=== PATIENT | male | born 1930 | race African-American/Black ===

== ENCOUNTER 2017-01-09 10:21 | Observation (INO) ==
--- NOTE | 2017-01-09 11:03 | EKG Report ---
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
[2017-01-09 12:13] LABS: Basophils % 0.3 % (0.0-0.8); Hematocrit 33.9 VOL% (42.0-52.0); Hemoglobin 11.4 GM/DL (14.0-18.0); Immature Granulocytes % 0.5 %; Immature Granulocytes Absolute 0.03 #; Lymphocytes # 0.7 10*3/uL (1.4-4.0); Lymphocytes % 11.2 % (21.2-54.2); Mean Corpuscular HGB Conc 33.6 GM/DL (32-36); Mean Corpuscular Hemoglobin 27 PG (27-34); Mean Corpuscular Volume 81.3 FL (87-102); Mean Platelet Volume 10.3 FL (9.6-12.0); Monocytes # 0.4 10*3/uL (0.11-0.8); Monocytes % 5.4 % (1.7-12.7); Neutrophils # 5.3 10*3/uL (1.4-7.4); Neutrophils % 82.6 % (38.7-73.9); Platelet Count 235 T/CUMM (130-400); Red Blood Count 4.17 MC/CUMM (3.8-5.5); Red Cell Distribution Width 16.4 % (9.3-17.3); White Blood Count 6.4 T/CUMM (4-12)
--- NOTE | 2017-01-09 12:36 | XRay Report ---
XR chest 1V Indication: Chest pain Comparison: 15 December 2016 Findings: The heart and mediastinum are stable in size and configuration with cardiac surgery changes. The pulmonary vascularity is increased especially centrally but similar to previous exams. Lung volumes are increased with prominent bronchial markings. Right midlung density similar to previous exam. No other lung infiltrates, effusions, pneumothorax or other abnormality is demonstrated. Impression: Chronic lung changes. No acute process or significant change. PROCEDURE INTERPRETED AT [facility] DEPARTMENT OF RADIOLOGY Final Report Signed by: Dr. Jack Barr
[2017-01-09 12:38] LABS: Albumin 3.8 G/DL (3.4-5.0); Bilirubin,Total 0.4 MG/DL (0.2-1.0); Calcium 9.8 MG/DL (8.5-10.1); Osmolality,Calculated 280.5 MOS/KG (273-304); Potassium 4.9 MMOL/L (3.5-5.1); Total Protein 8.2 G/DL (6.4-8.3)
--- NOTE | 2017-01-09 13:12 | Emergency Department Note ---
Maria Elena Connolly Brittany, am scribing for, and in the presence of, Sumanth Benson MD 11:01. Kelley Connolly Phillip K, MD, personally performed the services described in this documentation, ascribed by Yumi Arredondo in my presence, and it is both accurate and complete 311 . Arrival - Arrival Chief Complaint: Chest Pain Stated Complaint: chest pain ED Nursing Triage Note: states has pain in rt side of chest the feels like something rubbing on the bone. onset 3 days ago. Mode of Arrival: Wheelchair Limitations: No Limitations Source: Patient - History of Present Illness HPI Narrative: This is an 86 y/o male,who presents to the ED with c/o CP which started 3 days ago. He localizes the chest pain to the right side of the chest and describes the pain as "something rubbing on his sternum". He has a known hx of lung and colon cancer. Pt denies a cough or fever. He states the pain is worse with ovements, but deeply breathing does not affect the chest pain. He notes the chest pain radiates into his left side. Pt has no other complaints/pain in the ED at this time. Pt has a PMHx of HTN, [place], colon and lung cancer. Pt has had an abdominal surgery and heart bypass. Pt denies a family medical Hx. Pt is a former smoker, he states he quit four (4) months ago. Onset (ago): day(s) (Started 3 days ago.) Consistency: constant Severity: moderate Quality: other ("Something rubbing on bone". ) Allergies/Adverse Reactions: Allergies Allergy/AdvReac Type Severity Reaction Status Date / Time No Known Allergies Allergy Verified 12/15/16 06:52 Home Medications: Home Medications Medication Instructions Recorded Confirmed Type Cyanocobalamin Inj [Vitamin B12 1,000 mcg IM Q30D 08/31/15 12/06/16 History Inj] Ezetimibe [Zetia] 10 mg PO DAILY 08/31/15 12/15/16 History Metformin HCl [Glucophage] 1,000 mg PO BID W/MEALS 08/31/15 12/15/16 History Simvastatin 20 mg PO BEDTIME 08/31/15 12/15/16 History Aspirin [Ecotrin] 81 mg PO DAILY 04/21/16 12/15/16 History Lisinopril [Prinivil] 2.5 mg PO DAILY #30 tablet 04/25/16 12/15/16 Rx Metoprolol Tartrate Tab [Lopressor 50 mg PO BID #60 tablet 04/25/16 12/15/16 Rx Tab] Nitroglycerin Sl Tab [Nitrostat] 0.4 mg SL Q5M PRN #1 bottle 04/25/16 12/06/16 Rx Pantoprazole Tab [Protonix Tab] 40 mg PO DAILY #30 tablet 04/25/16 12/15/16 Rx hydroCHLOROthiazide 12.5 mg PO DAILY #30 capsule 08/11/16 12/15/16 Rx [Hydrochlorothiazide] Review of System - Review of System 12 point system: reviewed and no additional remarkable complaints except as stated - Review of System Constitutional: Absent: fever Respiratory: Absent: cough Cardiovascular: Present: chest pain Medical,Surgical,& Family Hx - Medical History Cardio: History of: Hypertension (MEDICATION), [place] Neurology: History of: Migraine No history of: Brain Aneurysm, Cerebrovascular Accident, Seizures, Vertigo HEENT: History of: HEENT Problems Respiratory: History of: Pneumonia Comment Only: Respiratory Problems (HAD FLU VACCINE AND PNUEMONIA VACCINE) Gastrointestinal: History of: Gastrointestinal Cancer (colon cancer) - Surgical History Cardiac Surgeries: Sugical HX of: Cardiac Catheterization (HEART BYPASS) Neurologic Surgeries: Patient denies: Brain Aneurysm Abdominal Surgeries: Surgical HX of: Abdominal Surgery (: Resection secondary to carcinoma) - Social History Smoking Status: Former smoker Frequency of Alcohol Use: None Type of Drug Use: None Exam Vital Signs: Vital Signs Temperature 98.1 F 01/09/17 10:24 Pulse Rate 70 01/09/17 11:15 Respiratory Rate 18 01/09/17 11:15 Blood Pressure 179/104 01/09/17 11:15 O2 Sat by Pulse Oximetry 90 L 01/09/17 11:15 - General General appearance: alert, in no apparent distress - Head Head exam: Present: atraumatic, normocephalic, normal inspection - Eye Eye exam: Present: normal appearance, PERRL, EOMI. Absent: nystagmus - ENT ENT exam: Present: normal exam, mucous membranes moist - Neck Neck exam: Present: normal inspection, full ROM, trachea midline. Absent: tenderness - Chest Chest inspection: Present: normal inspection, symmetric chest wall rise. Absent : tenderness - Respiratory Respiratory exam: Present: rales (Bibasilar rales). Absent: normal lung sounds bilaterally, respiratory distress - Cardiovascular Cardiovascular exam: Present: regular rate, normal rhythm, normal heart sounds. Absent: murmur, rubs, gallop, clicks - Abdominal Exam Abdominal exam: Present: soft, normal bowel sounds. Absent: distention, tenderness, guarding, rebound, rigidity - Rectal Exam Rectal exam: Present: deferred - Extremities Exam Extremities exam: Present: normal inspection, full ROM, normal capillary refill. Absent: tenderness, pedal edema - Back Exam Back exam: Present: normal inspection, full ROM. Absent: tenderness, muscle spasm, rashes - Neurological Exam Neurological exam: Present: alert, oriented X3, CN II-XII intact. Absent: motor sensory deficit - Psychiatric Psychiatric exam: Present: normal affect, normal mood. Absent: depressed, agitated, anxious, flat affect, manic - Skin Skin exam: Present: warm, dry, intact, normal color. 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 Results - Labs CBC & BMP: 01/09/17 12:06 01/09/17 12:06 Lab Results: I have reviewed the patients labs Labs: Laboratory Tests 01/09/17 01/09/17 12:06 12:06 WBC 6.4 RBC 4.17 Hgb 11.4 L Hct 33.9 L MCV 81.3 L MCH 27 MCHC 33.6 RDW 16.4 Plt Count 235 MPV 10.3 Neut % (Auto) 82.6 H Lymph % (Auto) 11.2 L [place]elope % (Auto) 5.4 Eos % (Auto) 0.0 Baso % (Auto) 0.3 Neut # (Auto) 5.3 Lymph # (Auto) 0.7 L [place] # (Auto) 0.4 Eos # (Auto) 0.0 Baso # (Auto) 0.0 Immature Gran % 0.5 Nucleated RBC % 0.0 Immature Gran # 0.03 Nucleated RBCs # 0.00 Immature Plt Fraction 0.0 Sodium 139 Potassium 4.9 Chloride 104 Carbon Dioxide 31 Anion Gap 8.9 BUN 22 H Creatinine 1.40 H GFR Calculation 56 BUN/Creatinine Ratio 15.00 Glucose 125 H Calculated Osmolality 280.5 Calcium 9.8 Total Bilirubin 0.40 AST 20 ALT 16 Alkaline Phosphatase 69 Total Protein 8.2 Albumin 3.8 Globulin 4.4 H Albumin/Globulin Ratio 0.8 L Laboratory Tests 01/09/17 01/09/17 01/09/17 12:06 12:06 12:06 WBC 6.4 RBC 4.17 Hgb 11.4 L Hct 33.9 L MCV 81.3 L MCH 27 MCHC 33.6 RDW 16.4 Plt Count 235 MPV 10.3 Neut % (Auto) 82.6 H Lymph % (Auto) 11.2 L [place]elope % (Auto) 5.4 Eos % (Auto) 0.0 Baso % (Auto) 0.3 Neut # (Auto) 5.3 Lymph # (Auto) 0.7 L [place] # (Auto) 0.4 Eos # (Auto) 0.0 Baso # (Auto) 0.0 Immature Gran % 0.5 Nucleated RBC % 0.0 Immature Gran # 0.03 Nucleated RBCs # 0.00 Immature Plt Fraction 0.0 Sodium 139 Potassium 4.9 Chloride 104 Carbon Dioxide 31 Anion Gap 8.9 BUN 22 H Creatinine 1.40 H GFR Calculation 56 BUN/Creatinine Ratio 15.00 Glucose 125 H Calculated Osmolality 280.5 Calcium 9.8 Total Bilirubin 0.40 AST 20 ALT 16 Alkaline Phosphatase 69 Troponin I 0.115 H Total Protein 8.2 Albumin 3.8 Globulin 4.4 H Albumin/Globulin Ratio 0.8 L - EKG EKG results: interpreted by ERMD, sinus rhythm (Nonspecific ST-T changes with left ventricular hypertrophy) - Diagnostic Findings Procedure: Chest x-ray: report reviewed by me (Chronic lung changes. No acute process or significant changes. ) Disposition Clinical Impression: Chest pain, Small cell carcinoma of right lung Case discussed with: patient Disposition: Still a Patient Condition: Guarded Additional Instructions: Admit to the hospitalist.
[2017-01-09] MEDS ORDERED: ACETAMINOPHEN 325 MG TABLET PO PRN (14:22)
[2017-01-09] MEDS ORDERED: DOCUSATE SODIUM 100 MG CAPSULE PO PRN (14:22)
[2017-01-09] MEDS ORDERED: ONDANSETRON 4 MG/2 ML VIAL IV PRN (14:22)
[2017-01-09] MEDS ORDERED: NITROGLYCERIN SL 0.4 MG TABLET SL PRN (14:23)
--- NOTE | 2017-01-09 15:04 | Hospitalist History & Physical ---
Assessment and Plan - Time spent with patient Time spent with patient: Greater than 30 minutes (1) Chest pain Status: Acute Assessment and plan: 86-year-old -[place] male presents with chest pain localized to the right chest. Troponin is mildly elevated however this seems to be baseline for this patient. Patient will be admitted to the hospital medicine service for further evaluation. Trend EKGs and troponins. Check thyroid function. Current Visit: No (2) Diabetes mellitus Status: Chronic Assessment and plan: Serum glucose noted to be 125. Continue metformin. Current Visit: No (3) Small cell carcinoma of right lung Status: Acute Assessment and plan: Bronchial biopsy with washings performed in [place] [address] Espinoza. Pathology reports small cell carcinoma of the right lung. CT of the chest from November 10, 2016 shows a right hilar mass in the middle lobe measuring 4.3 x 2.63 x 2.4 cm and abuts the pleural surface. After consultation with oncology, chemotherapy was not deemed a viable option. This is likely the source of the patient's chest pain at this presentation. Current Visit: Yes (4) Elevated troponin Status: Acute Current Visit: No (5) Hypertension Status: Chronic Current Visit: No Qualifiers: Hypertension type: essential hypertension Qualified Code(s): I10 - Essential (primary) hypertension History of Present Illness Chief complaint: chest pain History of present illness: Mr. Taveras is a 86 year old male with a past medical history significant for hypertension, coronary artery disease, NSTEMI, CABG, diabetes mellitus, COPD and small cell carcinoma of the RML who presents with right- sided chest pain having onset 3 days ago. The patient is accompanied by his sister who provides much of the history. Patient states that the pain does radiate into his left chest, is uncomfortable with movement, but does worsen with inspiration. He has a history of colon cancer and was recently diagnosed with small cell carcinoma in November 2016. He states that he has seen an oncologist and, given the patient's nutritional status and frailty, has decided not to pursue any therapy at this time. Patient is a former smoker but reports quitting four months ago. He denies alcohol use. Lab work reveals WBC 6.4, hemoglobin 11.4, hematocrit 33.9, BUN 22, creatinine 1.4, serum glucose 125. The patient does have a mildly elevated troponin at 0.115, however, this appears to be baseline for this patient per hospital records. Chest x-ray does not show any significant change from previous imaging. This case is been discussed with Dr. Benson, ER physician and Dr. Munoz, admitting physician, the patient will be admitted for observation. CODE STATUS has been discussed; patient is a full code. Home medications have been reviewed and reconciled. Home Medications Medication Instructions Recorded Confirmed Type Cyanocobalamin Inj [Vitamin B12 1,000 mcg IM Q30D 08/31/15 12/06/16 History Inj] Ezetimibe [Zetia] 10 mg PO DAILY 08/31/15 12/15/16 History Metformin HCl [Glucophage] 1,000 mg PO BID W/MEALS 08/31/15 12/15/16 History Simvastatin 20 mg PO BEDTIME 08/31/15 12/15/16 History Aspirin [Ecotrin] 81 mg PO DAILY 04/21/16 12/15/16 History Lisinopril [Prinivil] 2.5 mg PO DAILY #30 tablet 04/25/16 12/15/16 Rx Metoprolol Tartrate Tab [Lopressor 50 mg PO BID #60 tablet 04/25/16 12/15/16 Rx Tab] Nitroglycerin Sl Tab [Nitrostat] 0.4 mg SL Q5M PRN #1 bottle 04/25/16 12/06/16 Rx Pantoprazole Tab [Protonix Tab] 40 mg PO DAILY #30 tablet 04/25/16 12/15/16 Rx hydroCHLOROthiazide 12.5 mg PO DAILY #30 capsule 08/11/16 12/15/16 Rx [Hydrochlorothiazide] Allergies Allergy/AdvReac Type Severity Reaction Status Date / Time No Known Allergies Allergy Verified 12/15/16 06:52 Medical,Surgical,& Family Hx - Medical History Cardio: History of: Hypertension (MEDICATION), [place] Neurology: History of: Migraine No history of: Brain Aneurysm, Cerebrovascular Accident, Seizures, Vertigo HEENT: History of: HEENT Problems Respiratory: History of: Pneumonia Comment Only: Respiratory Problems (HAD FLU VACCINE AND PNUEMONIA VACCINE) Gastrointestinal: History of: Gastrointestinal Cancer (colon cancer) - Surgical History Cardiac Surgeries: Sugical HX of: Cardiac Catheterization (HEART BYPASS) Neurologic Surgeries: Patient denies: Brain Aneurysm Abdominal Surgeries: Surgical HX of: Abdominal Surgery (: Resection secondary to carcinoma) - Family History Family History: Reports;: Family Diabetes, Family Hypertension - Social History Smoking Status: Former smoker (Quit 4 months ago per patient) Have you smoked in the last 12 months: Yes Frequency of Alcohol Use: None Type of Drug Use: None Marital Status: Single Lives With:: Alone Functional capacity: independent ambulation 12 point system: reviewed and no additional remarkable complaints except as stated Exam - Constitutional Vitals: Period Temp Pulse Resp BP Sys/Nolen Pulse Ox Last 24 Hr 98.1 F 60-81 16-18 122-188/52-104 90-100 Exam: General appearance: normal weight, no acute distress - Head Head exam: Present: normocephalic, atraumatic - Eye Eye exam: Present: EOMI. Absent: conjunctival injection, nystagmus Pupils: Present: MARIO ALBERTO, normal accommodation - ENT ENT exam: Present: normal exam, normal external ear exam - Neck Neck exam: Present: normal inspection. Absent: lymphadenopathy, tenderness, thyromegaly - Respiratory Respiratory exam: Present: Decreased breath sounds. Absent: rales, rhonchi, wheezes - Cardiovascular Cardiovascular exam: Present: regular rate and rhythm. Absent: carotid bruit, gallop, rubs - GI/Abdominal GI/Abdominal exam: Present: normal bowel sounds. Absent: ascites, distended, mass - Extremities Exam Extremities exam: Present: normal inspection, normal capillary refill. Absent: edema - Back Exam Back exam: Absent: CVA tenderness (L), CVA tenderness (R) - Neurological Exam Neurological exam: Present: alert, oriented X3, CN II-XII intact, reflexes normal - Psychiatric Psychiatric exam: Present: normal affect, normal mood - Skin Skin exam: Present: normal color, warm, dry Results - Labs CBC & BMP: 01/09/17 12:06 01/09/17 12:06 Lab Results: I have reviewed the past 24 hour labs - Diagnostic Findings Procedure: Chest x-ray: image reviewed by me, report reviewed by me (No significant change from previous images)
[2017-01-09 17:29] LABS: Troponin I Only 0.121 NG/ML (0.00-0.045)
[2017-01-09] MEDS: SODIUM CHLORIDE 0.9% 1,000 ML IV SCH (19:03)
[2017-01-09] MEDS: metFORMIN 500 MG TABLET PO SCH (19:04)
[2017-01-09 20:49] LABS: Troponin I Only 0.128 NG/ML (0.00-0.045)
[2017-01-09] MEDS ORDERED: SIMVASTATIN 20 MG TABLET PO SCH (21:00)
[2017-01-10 03:09] LABS: Troponin I Only 0.135 NG/ML (0.00-0.045)
[2017-01-10] MEDS: SODIUM CHLORIDE 0.9% 1,000 ML IV SCH ×2 (03:10→12:10)
[2017-01-10 03:17] LABS: Free T4 (Free Thyroxine) 1.62 NG/DL (0.76-1.46); Thyroid Stimulating Hormone 1.63 uIU/ml (0.358-3.74)
--- NOTE | 2017-01-10 06:39 | EKG Report ---
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
[2017-01-10] MEDS ORDERED: DEXTROSE 50% 25 GM/50 ML SYRINGE IV PRN (07:47)
[2017-01-10] MEDS ORDERED: GLUCAGON 1 MG VIAL IM PRN (07:47)
[2017-01-10] MEDS ORDERED: ASPIRIN EC 81 MG TABLET PO SCH (09:00)
[2017-01-10] MEDS ORDERED: EZETIMIBE 10 MG TABLET PO SCH (09:00)
[2017-01-10] MEDS ORDERED: PANTOPRAZOLE 40 MG TABLET PO SCH (09:00)
[2017-01-10] MEDS: metFORMIN 500 MG TABLET PO SCH (10:00)
[2017-01-10] MEDS ORDERED: hydrALAZINE 20 MG/1 ML VIAL IV ONE (10:03)
--- NOTE | 2017-01-10 10:06 | Discharge Summary ---
<Yandel Mckay - Last Filed: 01/10/17 12:08> Hospital Course - Hospital Course Hospital Course: Mr. Taveras is a 86 year old male with a past medical history significant for hypertension, coronary artery disease, NSTEMI, CABG, diabetes mellitus, COPD and small cell carcinoma of the RML who presented to the ED yesterday with right-sided chest pain having onset 3 days prior. The patient is accompanied by his sister who provides much of the history. Patient states that the pain does radiate into his left chest, is uncomfortable with movement, but does not worsen with inspiration. He has a history of colon cancer and was recently diagnosed with small cell carcinoma of the right lung in November 2016. He states that he has seen an oncologist and, given the patient's nutritional status and frailty, chemotherapy is not a viable option. He was admitted for observation and supportive IV therapy. His troponins were trended and did increase mildly, however they remain within the patient's baseline. His total CK and CK-MB were normal. He does not voice any complaints at this time. He has reached maximum benefit from hospitalization and is stable for discharge home. I have personally seen and examined this patient today. I agree with the below note as prepared by the advanced practice provider. I agree with the assessment and plan. Case discussed with MATTHEW Bolton. Home medications reviewed and reconciled - Time spent with patient Time with patient DS: Greater than 30 minutes Diagnosis - Discharge Diagnosis (1) Chest pain Status: Acute (2) Diabetes mellitus Status: Chronic (3) Small cell carcinoma of right lung Status: Acute (4) Elevated troponin Status: Acute (5) Hypertension Status: Chronic Specialty Discharge - Follow Up or Referrals Discharge Plan - Discharge Data Disposition: Disch To Home/Self Care - Discharge Medications Continue Ezetimibe [Zetia] 10 mg PO DAILY Cyanocobalamin Inj [Vitamin B12 Inj] 1,000 mcg IM Q30D Simvastatin 20 mg PO BEDTIME Metformin HCl [Glucophage] 1,000 mg PO BID W/MEALS Nitroglycerin Sl Tab [Nitrostat] 0.4 mg SL Q5M PRN #1 bottle PRN Reason: Chest Pain Aspirin [Ecotrin] 81 mg PO DAILY Lisinopril [Prinivil] 2.5 mg PO DAILY #30 tablet Pantoprazole Tab [Protonix Tab] 40 mg PO DAILY #30 tablet Metoprolol Tartrate Tab [Lopressor Tab] 50 mg PO BID Discontinued hydroCHLOROthiazide [Hydrochlorothiazide] 12.5 mg PO DAILY #30 capsule - Follow Up or Referral - Forms/Instructions Instructions: Chest Pain (DC), Lung Cancer (DC) Exam - Constitutional Vitals: Period Temp Pulse Resp BP Sys/Nolen Pulse Ox Last 24 Hr 97 F-97.9 F 60-85 16-18 122-199/52-90 91-100 Discharge Results Labs on day of discharge: Labs from last 24 hours 01/10/17 01/10/17 01/09/17 02:25 02:25 19:53 WBC RBC Hgb Hct MCV MCH MCHC RDW Plt Count MPV Neut % (Auto) Lymph % (Auto) Alfalfa % (Auto) Eos % (Auto) Baso % (Auto) Neut # (Auto) Lymph # (Auto) [place]falfa # (Auto) Eos # (Auto) Baso # (Auto) Immature Gran % Nucleated RBC % Immature Gran # Nucleated RBCs # Immature Plt Fraction Sodium Potassium Chloride Carbon Dioxide Anion Gap BUN Creatinine GFR Calculation BUN/Creatinine Ratio Glucose Calculated Osmolality Calcium Total Bilirubin AST ALT Alkaline Phosphatase Total Creatine Kinase 50 45 CK-MB (CK-2) 1.4 1.8 Troponin I 0.135 H 0.128 H Total Protein Albumin Globulin Albumin/Globulin Ratio Free T4 1.62 H TSH 3rd Generation 1.630 01/09/17 01/09/17 01/09/17 16:49 12:06 12:06 WBC 6.4 RBC 4.17 Hgb 11.4 L Hct 33.9 L MCV 81.3 L MCH 27 MCHC 33.6 RDW 16.4 Plt Count 235 MPV 10.3 Neut % (Auto) 82.6 H Lymph % (Auto) 11.2 L [place]alf[place] % (Auto) 5.4 Eos % (Auto) 0.0 Baso % (Auto) 0.3 Neut # (Auto) 5.3 Lymph # (Auto) 0.7 L [place] # (Auto) 0.4 Eos # (Auto) 0.0 Baso # (Auto) 0.0 Immature Gran % 0.5 Nucleated RBC % 0.0 Immature Gran # 0.03 Nucleated RBCs # 0.00 Immature Plt Fraction 0.0 Sodium Potassium Chloride Carbon Dioxide Anion Gap BUN Creatinine GFR Calculation BUN/Creatinine Ratio Glucose Calculated Osmolality Calcium Total Bilirubin AST ALT Alkaline Phosphatase Total Creatine Kinase 56 CK-MB (CK-2) 1.5 Troponin I 0.121 H 0.115 H Total Protein Albumin Globulin Albumin/Globulin Ratio Free T4 TSH 3rd Generation 01/09/17 12:06 WBC RBC Hgb Hct MCV MCH MCHC RDW Plt Count MPV Neut % (Auto) Lymph % (Auto) Alfalfa % (Auto) Eos % (Auto) Baso % (Auto) Neut # (Auto) Lymph # (Auto) [place]falf[place] # (Auto) Eos # (Auto) Baso # (Auto) Immature Gran % Nucleated RBC % Immature Gran # Nucleated RBCs # Immature Plt Fraction Sodium 139 Potassium 4.9 Chloride 104 Carbon Dioxide 31 Anion Gap 8.9 BUN 22 H Creatinine 1.40 H GFR Calculation 56 BUN/Creatinine Ratio 15.00 Glucose 125 H Calculated Osmolality 280.5 Calcium 9.8 Total Bilirubin 0.40 AST 20 ALT 16 Alkaline Phosphatase 69 Total Creatine Kinase CK-MB (CK-2) Troponin I Total Protein 8.2 Albumin 3.8 Globulin 4.4 H Albumin/Globulin Ratio 0.8 L Free T4 TSH 3rd Generation DS: Provider Date of admission: 01/09/17 13:36 Primary care physician: Meseret Rush NP Attending physician on admission: Carina Munoz MD Consults: 01/09/17 17:10 Consult to Dietitian [CONS] Routine Reason for Dietitian: Diet Recommendations Consult to Pastoral Services [CONS] Routine Comment: Pastoral Screen: Declines Visit Pastoral Screen Source of Request: Patient Discharging clinician: Yandel CASTRO <Carina Munoz - Last Filed: 01/10/17 13:42> Hospital Course - Time spent with patient Time with patient DS: Greater than 30 minutes (Total discharge time for this patient, including [id number] time, clinical documentation, medication reconciliation, and discharge planning was 34 minutes.) Diagnosis - Discharge Diagnosis (1) Coronary artery disease Status: Chronic (2) Pulmonary hypertension Status: Chronic (3) COPD (chronic obstructive pulmonary disease) Status: Chronic (4) Essential hypertension Status: Chronic (5) Diabetes mellitus Status: Chronic (6) Elevated troponin Status: Acute (7) Small cell carcinoma of right lung Status: Acute (8) Smoker Status: Chronic Discharge Plan - Discharge Data Condition at Discharge: Stable Discharge Diet: advance to your usual diet Activity: resume usual activities as tolerated Hygiene: no restrictions Weight Bearing at Discharge: full weight bearing Driving: no restrictions Contact your physician if you experience:: fever over 101, Shortness of breath, Bleeding, pain uncontrolled by pain medications - Forms/Instructions Additional Discharge Instructions: Follow-up with primary care physician in 1 week DS: Provider Expected date of discharge: 01/10/17
[2017-01-10] MEDS ORDERED: LISINOPRIL 2.5 MG TABLET PO SCH (10:30)
[2017-01-10] MEDS ORDERED: METOPROLOL TARTRATE 50 MG TABLET PO SCH (10:30)
[2017-01-10] MEDS ORDERED: INSULIN LISPRO 100 UNIT/ML SUBCUT SCH (11:30)
[2017-01-10 12:44] VITALS: BP 172/61
== END 2017-01-10 14:10 | disposition home or self-care (01) ==
LOC: N.EDINP 10:21 → N.ED 10:21 → SUATTDRO 13:36 → N.4E 15:12
PROVIDERS: ADMIT Family Medicine; ATTEND Family Medicine

== ENCOUNTER 2017-01-18 17:16 | Inpatient (IN) ==
--- NOTE | 2017-01-18 18:30 | EKG Report ---
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
--- NOTE | 2017-01-18 18:33 | Emergency Department Note ---
Arrival - Arrival Chief Complaint: Chest Pain Stated Complaint: are stiff and pain in chest ED Nursing Triage Note: c/o right sided chest pain radiating into right arm onset 1700pm on 01/17/17. Describes as aching. +shortness of breath. +nausea. Mode of Arrival: Wheelchair Time Seen by Provider: 01/18/17 17:58 - History of Present Illness HPI Narrative: This is an 86-year-old male of descent with a history of hypertension, coronary artery disease, non-ST segment elevated myocardial infarction, coronary artery bypass graft surgery, type 2 diabetes, COPD, who has right middle lobe small cell carcinoma and who has had colon cancer in the past who presents with chest pain radiating down both arms were started just prior to his arrival. Patient was admitted to the hospital on January 10 it was found that he has chronically elevated troponin with values ranging from Trop=0.115 on 01/09/17, Trop=0.128 on 01/09/17 Trop = 0.135 on 01/10/17. Allergies/Adverse Reactions: Allergies Allergy/AdvReac Type Severity Reaction Status Date / Time No Known Allergies Allergy Verified 01/18/17 17:25 Home Medications: Home Medications Medication Instructions Recorded Confirmed Type Cyanocobalamin Inj [Vitamin B12 1,000 mcg IM Q30D 08/31/15 01/18/17 History Inj] Ezetimibe [Zetia] 10 mg PO QAM 08/31/15 01/18/17 History Metformin HCl [Glucophage] 1,000 mg PO BID W/MEALS 08/31/15 01/18/17 History Simvastatin 20 mg PO BEDTIME 08/31/15 01/18/17 History Aspirin [Ecotrin] 81 mg PO QAM 04/21/16 01/18/17 History Nitroglycerin Sl Tab [Nitrostat] 0.4 mg SL Q5M PRN #1 bottle 04/25/16 01/18/17 Rx Metoprolol Tartrate Tab [Lopressor 50 mg PO BID 01/09/17 01/18/17 History Tab] Clopidogrel Bisulfate [Clopidogrel] 75 mg PO QAM 01/18/17 01/18/17 History Lisinopril [Prinivil] 2.5 mg PO QAM 01/18/17 01/18/17 History Pantoprazole Tab [Protonix Tab] 40 mg PO QAM 01/18/17 01/18/17 History Review of System - Review of System Constitutional: Absent: fever, night sweats Eyes: Absent: redness, vision change Head/Ears/Nose/Throat: Absent: epistaxis, nasal drainage Cardiovascular: Absent: dyspnea on exertion, orthopnea, edema Gastrointestinal: Absent: diarrhea, constipation, hematemesis Genitourinary male: Absent: urgency, dysuria Musculoskeletal: Absent: lower back pain, leg pain Skin: Absent: as per HPI, change in hair/nails Neurological: Absent: numbness, paresthesias Psychiatric: Absent: anxiety, depression Endocrine: Absent: heat intolerance, polydipsia Hematological/Lymphatic: Absent: easy bruising, lymphadenopathy Allergic/Immunologic: Absent: urticaria, itchy eyes Medical,Surgical,& Family Hx - Medical History Cardio: History of: Hypertension, [place] Neurology: History of: Migraine No history of: Brain Aneurysm, Cerebrovascular Accident, Seizures, Vertigo HEENT: History of: HEENT Problems Respiratory: History of: Pneumonia Comment Only: Respiratory Problems (HAD FLU VACCINE AND PNUEMONIA VACCINE) Gastrointestinal: History of: Gastrointestinal Cancer (colon cancer-1989) - Surgical History Cardiac Surgeries: Sugical HX of: Cardiac Catheterization (HEART BYPASS) Neurologic Surgeries: Patient denies: Brain Aneurysm Abdominal Surgeries: Surgical HX of: Abdominal Surgery (: Resection secondary to carcinoma) - Family History Family History: Reports;: Family Diabetes, Family Hypertension - Social History Smoking Status: Current every day smoker Frequency of Alcohol Use: None Type of Drug Use: None Exam Vital Signs: Vital Signs Temperature 98.6 F 01/18/17 18:00 Pulse Rate 81 01/18/17 19:31 Respiratory Rate 20 01/18/17 19:31 Blood Pressure 160/62 01/18/17 19:31 O2 Sat by Pulse Oximetry 100 01/18/17 19:31 - General General appearance: alert - Eye Eye exam: Present: PERRL, EOMI - ENT ENT exam: Present: normal exam, normal oropharynx - Neck Neck exam: Present: normal inspection, full ROM - Chest Chest inspection: Present: normal inspection - Respiratory Respiratory exam: Present: normal lung sounds bilaterally - Cardiovascular Cardiovascular exam: Present: regular rate, normal rhythm - Abdominal Exam Abdominal exam: Present: soft, normal bowel sounds - Back Exam Back exam: Present: normal inspection, full ROM - Neurological Exam Neurological exam: Present: alert, oriented X3 - Psychiatric Psychiatric exam: Present: normal affect, normal mood - Skin Skin exam: Present: warm, dry Course Course Narrative: The patient continues to have an elevated troponin with a history of coronary artery disease however his electrocardiogram has changed from his previous admission with ST segment depression in leads I, aVL, V4 5 and 6. Because of the chest pain radiating to both arms of the known coronary disease seems reasonable the patient should be admitted to the hospital for further evaluation. And possible consultation with cardiology. The case was discussed with the hospitalist who agreed to come to the emergency department and evaluate the patient for possible admission Results - Labs CBC & BMP: 01/18/17 18:10 01/18/17 18:10 Disposition Clinical Impression: Chest pain Disposition: Still a Patient Additional Instructions: The CT scan of your lower back does not show any broken bones or evidence of mass. 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 In the meantime we have prescribed pain medication. Return to the emergency department if you are unable to urinate or if you have difficulty controlling her bowel movements.
[2017-01-18 18:53] LABS: Alanine Aminotransferase 14 U/L (16-61); Albumin 3.4 G/DL (3.4-5.0); Alkaline Phosphatase 69 U/L (45-117); Aspartate Amino Transferase 19 U/L (0-37); Basophils % 0.1 % (0.0-0.8); Bilirubin,Total < 0.39 MG/DL (0.2-1.0); Blood Urea Nitrogen 22 MG/DL (7-18); Calcium 9.3 MG/DL (8.5-10.1); Glucose 143 MG/DL (74-106); Hematocrit 33.4 VOL% (42.0-52.0); Hemoglobin 11.5 GM/DL (14.0-18.0); Immature Granulocytes % 0.3 %; Immature Granulocytes Absolute 0.02 #; Lymphocytes # 0.6 10*3/uL (1.4-4.0); Lymphocytes % 8.4 % (21.2-54.2); Mean Corpuscular HGB Conc 34.4 GM/DL (32-36); Mean Corpuscular Hemoglobin 28 PG (27-34); Mean Corpuscular Volume 80.1 FL (87-102); Monocytes # 0.6 10*3/uL (0.11-0.8); Monocytes % 8.6 % (1.7-12.7); Neutrophils # 5.8 10*3/uL (1.4-7.4); Neutrophils % 82.6 % (38.7-73.9); Osmolality,Calculated 277.8 MOS/KG (273-304); Platelet Count 249 T/CUMM (130-400); Potassium 4.7 MMOL/L (3.5-5.1); Red Blood Count 4.17 MC/CUMM (3.8-5.5); Red Cell Distribution Width 16.4 % (9.3-17.3); Sodium 137 MMOL/L (136-145); Total Protein 8.5 G/DL (6.4-8.3)
--- NOTE | 2017-01-18 18:53 | XRay Report ---
2 view chest. Indication: Chest pain. Comparison: January 09, 2017. The heart is normal in size. Post median sternotomy. The lung lerner are hyperexpanded. 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 The mass in the right middle lobe is unchanged in size. There is stable right hilar adenopathy. The osseous structures are diffusely demineralized. Impression: Chronic lung changes. Pleural plaque. Soft tissue mass in the right midlung field and right-sided hilar adenopathy is stable. PROCEDURE INTERPRETED AT [facility] DEPARTMENT OF RADIOLOGY Final Report Signed by: Dr. Anali Stahl
[2017-01-18] MEDS ORDERED: NITROGLYCERIN 2% OINT 1 INCH/GM PACK TOP STA (19:35)
[2017-01-18] MEDS ORDERED: NITROGLYCERIN 2% OINT 1 INCH/GM PACK TOP ONE (20:03)
[2017-01-18] MEDS ORDERED: MORPHINE 2 MG/1 ML SYRINGE IV PRN (20:20)
[2017-01-18] MEDS ORDERED: ACETAMINOPHEN 325 MG TABLET PO PRN (20:20)
[2017-01-18] MEDS ORDERED: ONDANSETRON 4 MG/2 ML VIAL IV PRN (20:20)
[2017-01-18] MEDS ORDERED: DOCUSATE SODIUM 100 MG CAPSULE PO PRN (20:20)
[2017-01-18] MEDS ORDERED: NITROGLYCERIN SL 0.4 MG TABLET SL PRN (20:24)
[2017-01-18] MEDS ORDERED: hydrALAZINE 20 MG/1 ML VIAL IV PRN (20:25)
[2017-01-18] MEDS ORDERED: CYANOCOBALAMIN 1000 MCG/1 ML VIAL IM SCH (20:30)
--- NOTE | 2017-01-18 20:47 | Hospitalist History & Physical ---
Assessment and Plan - Time spent with patient Time spent with patient: Greater than 30 minutes (1) Chest pain Status: Acute Assessment and plan: Admit to telemetry for observation. Consult cardiology. Repeat cardiac enzymes. Morphine aspirin nitroglycerin and oxygen ordered. Lipid panel and hemoglobin A1c were done in July 2016 and the results are in the computer Current Visit: Yes Qualifiers: Chest pain type: unspecified Qualified Code(s): R07.9 - Chest pain, unspecified (2) Lung cancer Status: Acute Current Visit: Yes Qualifiers: Laterality: right Lung location: middle lobe of lung Qualified Code(s): C34.2 - Malignant neoplasm of middle lobe, bronchus or lung (3) Coronary artery disease Status: Chronic Current Visit: No (4) Essential hypertension Status: Chronic Current Visit: Yes (5) Diabetes mellitus Status: Chronic Current Visit: Yes Qualifiers: Diabetes mellitus type: type 2 Diabetes mellitus complication status: without complication (6) ALEJANDRO (acute kidney injury) Status: Acute Assessment and plan: Hydrate with normal saline. Stop nephrotoxic medications. Hold metformin. Current Visit: No (7) Elevated troponin Status: Acute Assessment and plan: Repeat troponin every 6 hours 3 sets. Consult cardiology. This appears to be a chronic issue judging by his previous sets of troponins Current Visit: No History of Present Illness Chief complaint: chest pain, difficulty urinating History of present illness: Mr. Taveras is a 86 year old male with a history of right lung mass, hypertension, diabetes, hyperlipidemia, and coronary artery disease that presented to the emergency department today accompanied by his sister with a complaint of chest pain that radiates into his right and left arm. The patient lives alone and is looked after by his sister. He was recently seen in the emergency department approximately 2 weeks ago for similar complaints and was admitted for observation. He was acutely dehydrated at that time and received IV fluid hydration and was discharged home the following day. He always has a slightly elevated troponin and this was the case today. However today he also had EKG changes with ST segment depression. He is being admitted to the hospitalist service for repeat cardiac enzymes and evaluation by his staff trainer Dr. Lewis. I had a long discussion with the patient's sister at the bedside regarding his long-term prognosis and need for placement versus living with her. She plans to take him home with her to her house after this hospitalization. Given his recurrent visits to the emergency department and slightly elevated troponin with EKG changes, I am admitting the patient to the hospital for formal cardiology evaluation. Regarding his complaint of difficulty urinating, the patient reports that he frequently has to strain to urinate. He says this is worse since we stopped his hydrochlorothiazide in the last admission. His HCTZ was discontinued due to dehydration and acute on chronic kidney injury. Today his creatinine is 1.6 with a BUN of 22 which is again mildly elevated from his baseline. The patient does not appear to take adequate oral intake and frequently gets dehydrated. This was discussed with him and his sister at the bedside at length. He may have an element of prostatic hypertrophy and Flomax 0.4 mg will be added to his home medications. His home medications were reviewed and reconciled. He is a full code. He does have a right lung mass and has been seen by oncology and decided against chemotherapy. Home Medications Medication Instructions Recorded Confirmed Type Cyanocobalamin Inj [Vitamin B12 1,000 mcg IM Q30D 08/31/15 01/18/17 History Inj] Ezetimibe [Zetia] 10 mg PO QAM 08/31/15 01/18/17 History Metformin HCl [Glucophage] 1,000 mg PO BID W/MEALS 08/31/15 01/18/17 History Simvastatin 20 mg PO BEDTIME 08/31/15 01/18/17 History Aspirin [Ecotrin] 81 mg PO QAM 04/21/16 01/18/17 History Nitroglycerin Sl Tab [Nitrostat] 0.4 mg SL Q5M PRN #1 bottle 04/25/16 01/18/17 Rx Metoprolol Tartrate Tab [Lopressor 50 mg PO BID 01/09/17 01/18/17 History Tab] Clopidogrel Bisulfate [Clopidogrel] 75 mg PO QAM 01/18/17 01/18/17 History Lisinopril [Prinivil] 2.5 mg PO QAM 01/18/17 01/18/17 History Pantoprazole Tab [Protonix Tab] 40 mg PO QAM 01/18/17 01/18/17 History Allergies Allergy/AdvReac Type Severity Reaction Status Date / Time No Known Allergies Allergy Verified 01/18/17 17:25 Medical,Surgical,& Family Hx - Medical History Cardio: History of: CAD, Hypertension, [place] Neurology: History of: Migraine No history of: Brain Aneurysm, Cerebrovascular Accident, Seizures, Vertigo HEENT: History of: HEENT Problems Endocrine: History of: Diabetes Mellitus (NIDDM) Respiratory: History of: Pneumonia, Lung Cancer (Right lung mass) Comment Only: Respiratory Problems (HAD FLU VACCINE AND PNUEMONIA VACCINE) Genitourinary: History of: Prostate Problems Gastrointestinal: History of: Gastrointestinal Cancer (colon cancer-1989) - Surgical History Cardiac Surgeries: Sugical HX of: Cardiac Catheterization (HEART BYPASS) Neurologic Surgeries: Patient denies: Brain Aneurysm Abdominal Surgeries: Surgical HX of: Abdominal Surgery (: Resection secondary to carcinoma) - Family History Family History: Reports;: Family Diabetes, Family Hypertension - Social History Smoking Status: Current every day smoker Have you smoked in the last 12 months: Yes Frequency of Alcohol Use: None Type of Drug Use: None Marital Status: Single Lives With:: Alone Functional capacity: independent ambulation 12 point system: reviewed and no additional remarkable complaints except as stated Exam - Constitutional Vitals: Period Temp Pulse Resp BP Sys/Nolen Pulse Ox Last 24 Hr 98.6 F-98.6 F 81-92 18-22 152-176/62-68 95-100 Exam: Constitutional System: No distress. No tremulousness. Thin and frail appearing male Head: Normocephalic, atraumatic. Ears, Nose and Throat System: No pain or tenderness. No epistaxis or discharge Eyes System: Pupils equal, round, and reactive. Extraocular muscles intact. Neck: Supple, without adenopathy, No jugular venous distention. No thyromegaly, neck mass, or prior surgery apparent. Respiratory System: Chest clear to auscultation. Cardiovascular System: Heart with regular rate and rhythm. No murmur. GI System: Abdomen soft, nontender. Normo active bowel sounds present. Musculoskeletal System: limbs with no pedal edema. Full distal pulses. Normal capillary refill. Neurological System: No discernable sensory deficit. No aphasia Psychiatric System: Conversation is rational Results - Labs CBC & BMP: 01/18/17 18:10 01/18/17 18:10 Lab Results: I have reviewed the past 24 hour labs
[2017-01-18] MEDS: SODIUM CHLORIDE 0.9% 1,000 ML IV SCH (22:20)
[2017-01-18] MEDS: ENOXAPARIN 40 MG/0.4 ML SYRINGE SUBCUT SCH (22:41)
[2017-01-18] MEDS: TAMSULOSIN 0.4 MG CAPSULE PO SCH (22:42)
[2017-01-18] MEDS: SIMVASTATIN 20 MG TABLET PO SCH (22:42)
[2017-01-18] MEDS: METOPROLOL TARTRATE 25 MG TABLET PO SCH (22:42)
[2017-01-18] MEDS: NITROGLYCERIN 2% OINT 1 INCH/GM PACK TOP SCH (23:45)
[2017-01-19] MEDS: SODIUM CHLORIDE 0.9% 1,000 ML IV SCH ×3 (05:21→17:18)
[2017-01-19] MEDS: NITROGLYCERIN 2% OINT 1 INCH/GM PACK TOP SCH ×2 (05:39→12:01)
[2017-01-19 05:41] LABS: Alanine Aminotransferase 10 U/L (16-61); Albumin 2.8 G/DL (3.4-5.0); Alkaline Phosphatase 57 U/L (45-117); Aspartate Amino Transferase 16 U/L (0-37); Bilirubin,Total < 0.39 MG/DL (0.2-1.0); Blood Urea Nitrogen 23 MG/DL (7-18); Calcium 8.7 MG/DL (8.5-10.1); Glucose 113 MG/DL (74-106); Magnesium 1.4 MG/DL (1.8-2.4); Osmolality,Calculated 283.4 MOS/KG (273-304); Potassium 4.5 MMOL/L (3.5-5.1); Sodium 140 MMOL/L (136-145); Total Protein 6.5 G/DL (6.4-8.3)
--- NOTE | 2017-01-19 08:54 | Cardiology Consult Note ---
Assessment and Plan - Time spent with patient Time spent with patient: Greater than 30 minutes Time spent discussing smoking cessation with patient: 3 to 10 minutes (1) Hx of CABG Status: Chronic Assessment and plan: SEE PLAN OF CARE LISTED BELOW Current Visit: Yes (2) Dyslipidemia Status: Chronic Assessment and plan: SEE PLAN OF CARE LISTED BELOW Current Visit: Yes (3) Diabetes mellitus Status: Chronic Assessment and plan: SEE PLAN OF CARE LISTED BELOW Current Visit: Yes Qualifiers: Diabetes mellitus type: type 2 Diabetes mellitus complication status: without complication (4) Essential hypertension Status: Chronic Assessment and plan: SEE PLAN OF CARE LISTED BELOW Current Visit: Yes (5) Atypical chest pain Status: Acute Assessment and plan: SEE PLAN OF CARE LISTED BELOW Current Visit: No (6) Elevated troponin Status: Chronic Assessment and plan: SEE PLAN OF CARE LISTED BELOW Current Visit: No (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 Assessment and plan: SEE PLAN OF CARE LISTED BELOW Current Visit: No (8) Coronary artery disease Status: Chronic Assessment and plan: SEE PLAN OF CARE LISTED BELOW Current Visit: No (9) Ischemic cardiomyopathy Status: Chronic Assessment and plan: SEE PLAN OF CARE LISTED BELOW Current Visit: No (10) Smoker Status: Chronic Assessment and plan: SEE PLAN OF CARE LISTED BELOW Current Visit: No History of Present Illness - Data of Consult Patient: known to practice within the last 3 years Consult date: 01/19/17 Requesting Physician: Ezequiel Jason Primary care physician: Meseret Rush - Consult Narrative Reason for consult: chest pain, SOB History of present illness: [place]: DR. CHIANG PCP: IRMA BISWAS Mr. Taveras is a poor historian. He does answer questions appropriately but has limited information. Much of this information is taken from medical records as there is no family at the bedside. He tells me his sister is the person who makes his medical decisions. Mr. Taveras,86 BM, has risk factors significant for: Known CAD (S/P CABG several years ago), hypertension, dyslipidemia, advanced age, sedentary lifestyle, tobaccoism, diabetes. History of right lung cancer previously seen by oncology and decided against chemotherapy. Last cardiac catheterization April 21, 2016 revealed the following: Impression: Significant three-vessel coronary disease Patent vein graft to a diagonal-which supplies flow to the LAD and the distal diagonal--this is a 25-year-old vein graft, placed in 1994 Occluded vein graft to the ramus intermedius and obtuse marginal-but this graft is open after the occlusion due to the connection between these 2 vessels and the flow into this graft Occluded vein graft to right coronary Occluded right coronary artery significant disease in the distal circumflex-however it has been bypassed mild disease in LAD and left main Mild aneurysmal segment of the ascending aorta Mild abdominal aortic aneurysm Peripheral vascular disease --significant narrowing of the right femoral artery to the patient's leg Angiogram the right femoral artery LVEF 40-50% Mild aortic regurgitation Plan/recommendations: The patient will have risk factors optimized. The patient will be on antiplatelet medications to include aspirin indefinitely and may be Plavix or Brilinta for at least a year. He will be on a beta-nat, statin, one can consider giving him an SUSAN inhibitor or ARB. Follow-up will be scheduled. Admitted January 18, 2017, with complaints of chest pain, shortness of breath. Mr. Taveras tells me his right arm and chest have been hurting for 2-3 days, movement recreates the discomfort and touching his arm recreates the discomfort. He is also tender in the left chest area, reproducible to palpation. He is also tender to touch in the right upper chest area more so than left. Described as "just hurting". Unable to rate the discomfort on a scale 1-10. Mr. Taveras tells me he is unsteady and on his feet and does not walk much. Midepigastric area is tender to touch as well. Denies nausea or vomiting. Troponins are flat at 0.11 -0.102. CPK, CK-MB are normal. I have reviewed his labs back through August 2015 and his troponins remained flat and unchanged. This is chronic elevation of his troponin. EKG is abnormal. I reviewed this with Dr. Hobbs. It is noted that he has early repolarization with LVH. This is not acute VT. At this time, medical management will ensue. Will continue cycle his cardiac biomarkers. Mr. Taveras does not know the name of his oncologist. He has refused intervention for his right middle lobe lung small cell carcinoma. This is not acute VT. The right chest shoulder and arm discomfort is reproducible to palpation and we will treat accordingly. Continue Aspirin, Plavix, Lisinopril, Metoprolol, Simvastatin. Patient has been treated with nitroglycerin, Lovenox. Will further discuss with Dr. Hobbs and await additional recommendations IMPRESSION/PLAN: 1. CHEST PAIN - this is not acute VT. We will continue to follow his cardiac biomarkers and EKG. Continue with the current regimen of medications listed above. The severity and prognosis of the lung cancer is unknown. Chest pain appears to be musculoskeletal in nature but we will continue to follow his cardiac biomarkers. Will add long-term nitroglycerin to his medication regimen 2. KNOWN CAD S/P CABG - see last heart catheterization report listed below. 3. CHRONICALLY ELEVATED TROPONIN - remains flat. Continue to follow. CPK, CK -MB within normal limits. 4. HYPERTENSION - adequately controlled. Continue beta-blockade and SSUAN inhibitor 5. DYSLIPIDEMIA - fasting lipid profile in the morning. Continue lipid- lowering agent. 6. DIABETES - metformin has been held on admission. Continue cover with sliding scale 7. RIGHT MIDDLE LOBE SMALL CELL CARCINOMA - continue current plan of care. He has declined treatment 8. TOBACCO USE - greater than 5 minutes was spent today discussing the merits of tobacco sensation 9. ICM - last ejection fraction noted be 40-50%. At this point, no need to repeat echocardiogram and can be followed outpatient for this as needed CC: Ezequiel Jason MD - Home Medications and Allergies Home Medications: Home Medications Medication Instructions Recorded Confirmed Type Cyanocobalamin Inj [Vitamin B12 1,000 mcg IM Q30D 08/31/15 01/18/17 History Inj] Ezetimibe [Zetia] 10 mg PO QAM 08/31/15 01/18/17 History Metformin HCl [Glucophage] 1,000 mg PO BID W/MEALS 08/31/15 01/18/17 History Simvastatin 20 mg PO BEDTIME 08/31/15 01/18/17 History Aspirin [Ecotrin] 81 mg PO QAM 04/21/16 01/18/17 History Nitroglycerin Sl Tab [Nitrostat] 0.4 mg SL Q5M PRN #1 bottle 04/25/16 01/18/17 Rx Metoprolol Tartrate Tab [Lopressor 50 mg PO BID 01/09/17 01/18/17 History Tab] Clopidogrel Bisulfate [Clopidogrel] 75 mg PO QAM 01/18/17 01/18/17 History Lisinopril [Prinivil] 2.5 mg PO QAM 09/21/17 09/21/17 History Pantoprazole Tab [Protonix Tab] 40 mg PO QAM 01/18/17 01/18/17 History Allergies/Adverse Reactions: Allergies Allergy/AdvReac Type Severity Reaction Status Date / Time No Known Allergies Allergy Verified 01/18/17 17:25 Review of systems: REVIEW OF SYSTEMS: - Constitutional Constitutional: Present: Fatigue. Absent: syncope, anorexia, night sweats - EENT Eyes: Absent: blurry vision, loss of vision, diplopia Ears: Absent: decreased hearing, ear pain, ear discharge - Cardiovascular Cardiovascular: Present: chest pain with movement, to palpation. Chronic mild dyspnea on exertion, dry cough. Denies edema, palpitations. Absent: chest pain with deep breath, claudication - Respiratory Respiratory: Present: BLACK, cough. Denies wheezing, hemoptysis, change in phlegm color - Gastrointestinal Gastrointestinal: Denies: constipation. Absent: abdominal pain, hematemesis, hematochezia, melena, change in bowel habits, nausea - Genitourinary Genitourinary: Difficulty urinating. Denies dysuria, urinary hesitancy, flank pain - Musculoskeletal Musculoskeletal: Present: back pain, arms, shoulders and chest. Absent: joint swelling, muscle cramps, muscle weakness - Neurological Neurological: Present: Poor gait without frequent falls. Absent: dizziness, hemiparesis - Psychiatric Psychiatric: Absent: anxiety, depression, difficulty concentrating - Endocrine Endocrine: Present: fatigue. Absent: cold intolerance, heat intolerance, polyuria, polyphagia, polydipsia - Hematologic/Lymphatic Hematologic/Lymphatic: Present: easy bruising. Absent: easy bleeding -Integumentary Integumentary: Absent: lesions, rashes, skin breakdown Medical,Surgical,& Family Hx - Medical History Cardio: History of: CAD, Hypertension, VT No history of: Cardiac Dysrhythmia Neurology: History of: Migraine No history of: Brain Aneurysm, Cerebrovascular Accident, Seizures, Vertigo HEENT: History of: HEENT Problems Endocrine: History of: Diabetes Mellitus (NIDDM) Respiratory: History of: COPD, Pneumonia, Lung Cancer (Right lung mass) Comment Only: Respiratory Problems (HAD FLU VACCINE AND PNUEMONIA VACCINE) Genitourinary: History of: Prostate Problems Gastrointestinal: History of: Gastrointestinal Cancer (colon cancer-1989) Other: History of: 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) - Surgical History Cardiac Surgeries: Sugical HX of: Cardiac Catheterization (HEART BYPASS) Neurologic Surgeries: Patient denies: Brain Aneurysm Abdominal Surgeries: Surgical HX of: Abdominal Surgery (: Resection secondary to carcinoma) - Family History Family History: Reports;: Family Diabetes, Family Hypertension - Social History Smoking Status: Current every day smoker Have you smoked in the last 12 months: Yes Time spent discussing smoking cessation with patient: 3 to 10 minutes Frequency of Alcohol Use: None Type of Drug Use: None Marital Status: Single Lives With:: Alone Physical Examination Vital Signs Temp Pulse Resp BP Pulse Ox 98.6 F 92 H 18 169/66 96 01/18/17 17:19 01/18/17 17:19 01/18/17 17:19 01/18/17 17:19 01/18/17 17:19 Exam: General: [Emaciated, pleasant male. Appears comfortable. ] HEENT: [PERRL, normocephalic, atraumatic. Poor dentition noted mucous membranes moist. No jaundice noted. Conjunctiva moist and clear, sclerae anicteric] Neck: No JVD/HJR, no thyromegaly or lymphadenopathy noted. No carotid bruit appreciated Cardiac: [Regular rate and rhythm.] [No obvious murmur rub or gallop.] Tender to touch right and left chest Lungs: [Inspiratory crackles in the bases which improved and resolved with cough. No wheezing. Not requiring oxygen Abdomen: Soft, bowel sounds normoactive. Tender to touch mid epigastric area. No abdominal bruit or thrill noted. Musculoskeletal: No fluid collection. Decreased range of motion is noted. Extremities: Tenderness to touch in the right, arm shoulder. No clubbing, cyanosis noted. [ No edema noted.] Upper extremity pulses 2+. Lower extremity pulses 1+. Capillary refill less than 3 seconds. Skin: No unusual lesions or rashes. No skin breakdown appreciated. Neuro: Awake, alert and oriented 3. Moves all extremities well without hemiparesis or paralysis. No essential tremor is appreciated. Result/EKG - Labs CBC & BMP: 01/18/17 18:10 01/19/17 02:40 Lab Results: I have reviewed the past 24 hour labs Labs: Laboratory Results - last 24 hr 01/18/17 01/18/17 01/18/17 18:10 18:10 18:10 WBC 7.0 RBC 4.17 Hgb 11.5 L Hct 33.4 L MCV 80.1 L MCH 28 MCHC 34.4 RDW 16.4 Plt Count 249 MPV 11.0 Neut % (Auto) 82.6 H Lymph % (Auto) 8.4 L [place] % (Auto) 8.6 Eos % (Auto) 0.0 Baso % (Auto) 0.1 Neut # (Auto) 5.8 Lymph # (Auto) 0.6 L [place] # (Auto) 0.6 Eos # (Auto) 0.0 Baso # (Auto) 0.0 Immature Gran % 0.3 Nucleated RBC % 0.0 Immature Gran # 0.02 Nucleated RBCs # 0.00 Immature Plt Fraction 0.0 Sodium 137 Potassium 4.7 Chloride 104 Carbon Dioxide 25 Anion Gap 12.7 BUN 22 H Creatinine 1.60 H GFR Calculation 47 BUN/Creatinine Ratio 13.00 Glucose 143 H Calculated Osmolality 277.8 Calcium 9.3 Magnesium Total Bilirubin < 0.39 AST 19 ALT 14 L Alkaline Phosphatase 69 Total Creatine Kinase CK-MB (CK-2) Troponin I 0.114 H Total Protein 8.5 H Albumin 3.4 Globulin 5.1 H Albumin/Globulin Ratio 0.6 L 01/18/17 01/19/17 01/19/17 21:49 02:40 02:40 WBC RBC Hgb Hct MCV MCH MCHC RDW Plt Count MPV Neut % (Auto) Lymph % (Auto) [place] % (Auto) Eos % (Auto) Baso % (Auto) Neut # (Auto) Lymph # (Auto) [place] # (Auto) Eos # (Auto) Baso # (Auto) Immature Gran % Nucleated RBC % Immature Gran # Nucleated RBCs # Immature Plt Fraction Sodium 140 Potassium 4.5 Chloride 106 Carbon Dioxide 25 Anion Gap 13.5 BUN 23 H Creatinine 1.40 H GFR Calculation 51 BUN/Creatinine Ratio 16.00 Glucose 113 H Calculated Osmolality 283.4 Calcium 8.7 Magnesium 1.4 L Total Bilirubin < 0.39 AST 16 ALT 10 L Alkaline Phosphatase 57 Total Creatine Kinase 45 44 CK-MB (CK-2) < 1.0 < 1.0 Troponin I 0.120 H 0.110 H Total Protein 6.5 Albumin 2.8 L Globulin 3.7 H Albumin/Globulin Ratio 0.7 L - Diagnostic Findings Procedure: Chest x-ray: report reviewed by me - EKG EKG results: interpreted by me EKG shows: sinus rhythm
[2017-01-19] MEDS ORDERED: ASPIRIN EC 81 MG TABLET PO SCH (09:00)
[2017-01-19] MEDS ORDERED: PANTOPRAZOLE 40 MG TABLET PO SCH (09:00)
[2017-01-19] MEDS: LISINOPRIL 2.5 MG TABLET PO SCH (10:51)
[2017-01-19] MEDS: CLOPIDOGREL 75 MG TABLET PO SCH (10:53)
[2017-01-19] MEDS: PANTOPRAZOLE 40 MG TABLET PO SCH (10:53)
[2017-01-19] MEDS: EZETIMIBE 10 MG TABLET PO SCH (10:53)
[2017-01-19] MEDS: METOPROLOL TARTRATE 25 MG TABLET PO SCH (10:54)
[2017-01-19 10:55] LABS: Troponin I Only 0.102 NG/ML (0.00-0.045)
--- NOTE | 2017-01-19 14:04 | Hospitalist Progress Note ---
Assessment and Plan (1) Coronary artery disease Status: Chronic Assessment and plan: The patient appears to have angina. His mortality is likely limited primarily by his small cell lung cancer. Treatment of angina with narcotic pain medication appears appropriate and we will start that. Hospice referral underway. Cardiology consultation underway. 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 Banda is admitted to the hospital with chest discomfort, EKG changes, and elevation of troponin which seems similar to those that he has had before. The patient has a lung tumor and is in terminal condition. The patient and his sister are agreeable to hospice referral. Exam - Constitutional Vitals: Period Temp Pulse Resp BP Sys/Nolen Pulse Ox Last 24 Hr 98.3 F-99.1 F 76-106 14-22 122-176/62-85 88-100 General appearance: mild distress - Respiratory Respiratory exam: Present: clear to auscultation bilaterally - Cardiovascular Cardiovascular exam: Present: regular rate and rhythm - GI/Abdominal GI/Abdominal exam: Present: normal bowel sounds Results - Labs CBC & BMP: 01/18/17 18:10 01/19/17 02:40 Lab Results: I have reviewed the past 24 hour labs
[2017-01-19] MEDS: ASPIRIN EC 81 MG TABLET PO SCH (17:20)
[2017-01-19] MEDS: amLODIPine 5 MG TABLET PO SCH (17:21)
[2017-01-19] MEDS: ISOSORBIDE MONONITRATE 30 MG TABLET PO SCH (17:21)
[2017-01-19] MEDS: CARVEDILOL 3.125 MG TABLET PO SCH (20:49)
[2017-01-19] MEDS: TAMSULOSIN 0.4 MG CAPSULE PO SCH (20:49)
[2017-01-19] MEDS: SIMVASTATIN 20 MG TABLET PO SCH (20:49)
[2017-01-19] MEDS: ENOXAPARIN 40 MG/0.4 ML SYRINGE SUBCUT SCH (20:50)
[2017-01-20] MEDS: SODIUM CHLORIDE 0.9% 1,000 ML IV SCH (03:00)
[2017-01-20 04:58] LABS: Basophils % 0.2 % (0.0-0.8); Eosinophils # 0.1 10*3/uL (0.0-0.87); Eosinophils % 1.6 % (0.00-10.9); Hematocrit 26.4 VOL% (42.0-52.0); Hemoglobin 8.8 GM/DL (14.0-18.0); Immature Granulocytes % 0.4 %; Immature Granulocytes Absolute 0.02 #; Lymphocytes # 0.6 10*3/uL (1.4-4.0); Lymphocytes % 12.4 % (21.2-54.2); Mean Corpuscular HGB Conc 33.3 GM/DL (32-36); Mean Corpuscular Hemoglobin 27 PG (27-34); Mean Corpuscular Volume 80.7 FL (87-102); Monocytes # 0.5 10*3/uL (0.11-0.8); Monocytes % 9.8 % (1.7-12.7); Neutrophils # 3.8 10*3/uL (1.4-7.4); Neutrophils % 75.6 % (38.7-73.9); Platelet Count 208 T/CUMM (130-400); Red Blood Count 3.27 MC/CUMM (3.8-5.5); Red Cell Distribution Width 16.5 % (9.3-17.3)
[2017-01-20 05:31] LABS: Calcium 8.2 MG/DL (8.5-10.1); Magnesium 1.4 MG/DL (1.8-2.4); Potassium 3.8 MMOL/L (3.5-5.1); Risk Ratio 2.55; VLDL CHOLESTEROL 11.4 MG/DL
[2017-01-20] MEDS ORDERED: MAGNESIUM SULF RIDER 2 GM in PREMIX 1 EACH IV PRN (07:58)
[2017-01-20] MEDS ORDERED: MAGNESIUM SULF RIDER 4 GM in PREMIX 1 EACH IV PRN (07:58)
--- NOTE | 2017-01-20 08:20 | Discharge Summary ---
<Sabrina Dacosta - Last Filed: 01/20/17 08:17> Hospital Course - Hospital Course Hospital Course: 86-year-old -[place] male with history of lung cancer, CAD, hypertension , diabetes, and hyperlipidemia admitted by the hospitalist service on 01/18/2017 with chest pain and elevated troponins. Cardiology was consulted and determined that this is noncardiac in nature. They have adjusted his medications and he is doing well. He has no complaints of chest pain at this time. Dr. Jason had discussion with patient and his sister and they have decided to be discharged on hospice care. His lipids are okay, blood sugars are good and he is afebrile with vital signs stable. His mag is mildly low so we will replace this before discharge. He will need to follow-up with the hospice physician in 1 week with some labs. We will check with cardiology about follow-up with them as well. Complete discharge instructions were given to the patient. Care coordination, chart review, completed discharge paperwork took approximately 35 minutes. 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 (8) Hx of CABG Status: Chronic (9) Dyslipidemia Status: Chronic Specialty Discharge - Follow Up or Referrals Follow up with: Cardiology - [facility] [Provider Group] (ask cardiology who and when pt needs fu) Discharge Plan - Discharge Data Disposition: Hospice - Home Condition at Discharge: Stable Discharge Diet: heart healthy Activity: resume usual activities as tolerated Contact your physician if you experience:: Shortness of breath, pain uncontrolled by pain medications - Discharge Medications New amLODIPine [Norvasc] 5 mg PO DAILY #30 tablet Carvedilol [Coreg] 3.125 mg PO BID #60 tablet Isosorbide Mononitrate [Imdur] 30 mg PO DAILY #30 tablet Tamsulosin [Flomax] 0.4 mg PO BEDTIME #30 capsule HYDROcodone/ACETAMIN 5-325 [Happy 5-325] 1 tablet PO Q4H #30 tablet Continue Ezetimibe [Zetia] 10 mg PO QAM Cyanocobalamin Inj [Vitamin B12 Inj] 1,000 mcg IM Q30D Simvastatin 20 mg PO BEDTIME Metformin HCl [Glucophage] 1,000 mg PO BID W/MEALS Nitroglycerin Sl Tab [Nitrostat] 0.4 mg SL Q5M PRN #1 bottle PRN Reason: Chest Pain Clopidogrel Bisulfate [Clopidogrel] 75 mg PO QAM Pantoprazole Tab [Protonix Tab] 40 mg PO QAM Aspirin [Ecotrin] 81 mg PO QAM Lisinopril [Prinivil] 2.5 mg PO QAM Discontinued Metoprolol Tartrate Tab [Lopressor Tab] 50 mg PO BID - Follow Up or Referral Follow Up: Cardiology - [facility] [Provider Group] (ask cardiology who and when pt needs fu) - Forms/Instructions Exam - Constitutional Vitals: Period Temp Pulse Resp BP Sys/Nolen Pulse Ox Last 24 Hr 98.3 F-98.8 F 69-92 14-20 122-159/59-68 88-100 Exam: 86-year-old cachectic -[place] male, no acute distress, alert and oriented Chest clear CV regular rate and rhythm Abdomen soft and nontender Extremities no edema Discharge Results Labs on day of discharge: Labs from last 24 hours 01/20/17 01/20/17 01/19/17 04:39 04:39 09:31 WBC 5.0 RBC 3.27 L D Hgb 8.8 L D Hct 26.4 L MCV 80.7 L MCH 27 MCHC 33.3 RDW 16.5 Plt Count 208 MPV 11.0 Neut % (Auto) 75.6 H Lymph % (Auto) 12.4 L [place] % (Auto) 9.8 Eos % (Auto) 1.6 Baso % (Auto) 0.2 Neut # (Auto) 3.8 Lymph # (Auto) 0.6 L [place] # (Auto) 0.5 Eos # (Auto) 0.1 Baso # (Auto) 0.0 Immature Gran % 0.4 Nucleated RBC % 0.0 Immature Gran # 0.02 Nucleated RBCs # 0.00 Immature Plt Fraction 0.0 Sodium 143 Potassium 3.8 Chloride 109 H Carbon Dioxide 27 Anion Gap 10.8 BUN 15 Creatinine 1.00 GFR Calculation 77 BUN/Creatinine Ratio 15.00 Glucose 161 H Calculated Osmolality 288.0 Calcium 8.2 L Magnesium 1.4 L Total Creatine Kinase 63 D CK-MB (CK-2) < 1.0 Troponin I 0.102 H Triglycerides 57 Cholesterol 112 LDL Cholesterol 58.0 VLDL Cholesterol 11.4 HDL Cholesterol 44 Heart Disease Risk Ratio 2.55 DS: Provider Date of admission: 01/18/17 20:20 Primary care physician: Meseret Rush NP Attending physician on admission: Carina Munoz MD Consults: 01/18/17 20:20 Consult to Physician [CONS] Routine Comment: chest pain, elevated troponin Consulting Provider: Cardiology - [facility] Consult to Specialist Group: Cardiology Person Notified: NOAH Date Notified: 01/19/17 Time Notified: 07:45 01/19/17 01:57 Consult to Dietitian [CONS] Routine Reason for Dietitian: Dietary Consult 01/19/17 13:50 Consult to Case Mgmt/Social Srvs [CONS] Routine Reason for Case Mgmt/Social Srvs: Hospice Referral Discharging clinician: MATTHEW Edwards Expected date of discharge: 01/20/17 <Ezequiel Jason - Last Filed: 01/20/17 10:36> Diagnosis - Discharge Diagnosis (1) Coronary artery disease Status: Chronic (2) 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
[2017-01-20] MEDS: LISINOPRIL 2.5 MG TABLET PO SCH (08:34)
[2017-01-20] MEDS: amLODIPine 5 MG TABLET PO SCH (08:34)
[2017-01-20] MEDS: EZETIMIBE 10 MG TABLET PO SCH (08:34)
[2017-01-20] MEDS: PANTOPRAZOLE 40 MG TABLET PO SCH (08:35)
[2017-01-20] MEDS: ISOSORBIDE MONONITRATE 30 MG TABLET PO SCH (08:35)
[2017-01-20] MEDS: CARVEDILOL 3.125 MG TABLET PO SCH (08:35)
[2017-01-20] MEDS: CLOPIDOGREL 75 MG TABLET PO SCH (08:35)
[2017-01-20] MEDS: ASPIRIN EC 81 MG TABLET PO SCH (09:33)
[2017-01-20 11:43] VITALS: BP 112/48
--- NOTE | 2017-01-24 11:51 | Physician Query Form ---
CLICK EDIT DOCUMENT TO SELECT QUERY ANSWER --> OK --> SIGN Grisel Moon RN, CCDS Certified Clinical Junior Assistant Manager W) [phone] (f) [phone] [email or web address]: Make your selection(s) from the choices in EACH section by typing an "x" and enter comments in the comment section. Please use your independent medical judgment in providing your response. This request does not imply that any particular answer is desired or expected. 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 116 pounds, "Loss of body Fat", "Loss of Muscle Mass" and the patient was treated with "Trial of Vanilla Glucerna Milkshake with L&D". "right middle lobe small cell carcinoma" Based on the above, which following choice most accurately represents the patient's nutritional status? (X ) Malnutrition ( ) mild (X ) moderate ( ) severe ( ) Protein calorie malnutrition ( ) mild ( ) moderate ( ) severe (X ) Emaciation due to malnutrition ( ) Nutritional marasmus ( ) Cachexia ( ) Underweight ( ) No nutritional deficiency ( ) Other, please specify: ( ) Clinically unable to determine Mild Malnutrition (BMI < 18.5, % Normal Body Weight 85-95%) Moderate Malnutrition (BMI < 17, % Normal Body Weight 75-85%) Severe Malnutrition (BMI < 16, % Normal Body Weight < 75%) Source: [place] COMMENTS: PLEASE ALSO DOCUMENT RESPONSE IN PROGRESS NOTES AND/OR DISCHARGE SUMMARY Use of terms such as suspected, likely, or probable (associated with a specific diagnosis that is being evaluated, monitored, or treated as if it exists) are acceptable and can be restated in the discharge summary if not ruled out. MTDD
== END 2017-01-20 13:56 | disposition hospice, home (50) | DRG 313 ==
LOC: N.ED 17:16 → N.EDINP 20:20 → SUATTDRO 20:20 → N.TELEN 20:50
PROVIDERS: ADMIT Family Medicine; ATTEND Internal Medicine

== ENCOUNTER 2017-02-06 07:43 | Inpatient (IN) ==
[2017-02-06] MEDS ORDERED: DEXTROSE 50% 25 GM/50 ML VIAL IV STA (08:03)
[2017-02-06] MEDS ORDERED: DEXTROSE 50% 25 GM/50 ML SYRINGE IV ONE (08:06)
[2017-02-06] MEDS ORDERED: SODIUM CHLORIDE 0.9% 500 ML IV STA (08:07)
--- NOTE | 2017-02-06 08:07 | Emergency Department Note ---
Mj Connolly Manpreet, am scribing for, and in the presence of, Norm June MD 08:06. Shaylee Connolly Charles R, MD, personally performed the services described in this documentation, ascribed by Kirit Barker in my presence, and it is both accurate and complete 807 . Arrival - Arrival Chief Complaint: Non-Specific ED Nursing Triage Note: pt was seen last night for low blood sugar and dcd. pt had a blood sugar of 18 this am and he passed out Mode of Arrival: Stretcher Limitations: No Limitations Source: Patient Time Seen by Provider: 02/06/17 07:55 - History of Present Illness HPI Narrative: Pt is a 86 y/o male, with PMHx of HTN, [place], and CAD, who presents to the ED with CC of low blood sugar. Pt was seen last night for the same CC and dcd. Pt had a blood sugar of 18 this am and he passed out per triage notes. Pt also has a PMHx of CA and is on home hospice. Pt c/o being hungry but denies any pains anywhere. Pt states he does not know if he took his insulin today. Pt denies any fever, chills, vision changes, or N/V/D. No other pains/complaints reported to the ED. Onset (ago): hour(s) (Last night) Consistency: constant Severity: mild, moderate Severity scale (1-10): 3 Allergies/Adverse Reactions: Allergies Allergy/AdvReac Type Severity Reaction Status Date / Time No Known Allergies Allergy Verified 01/18/17 17:25 Home Medications: Home Medications Medication Instructions Recorded Confirmed Type Cyanocobalamin Inj [Vitamin B12 1,000 mcg IM Q30D 08/31/15 01/18/17 History Inj] Ezetimibe [Zetia] 10 mg PO QAM 08/31/15 01/18/17 History Metformin HCl [Glucophage] 1,000 mg PO BID W/MEALS 08/31/15 01/18/17 History Simvastatin 20 mg PO BEDTIME 08/31/15 01/18/17 History Aspirin [Ecotrin] 81 mg PO QAM 04/21/16 01/18/17 History Nitroglycerin Sl Tab [Nitrostat] 0.4 mg SL Q5M PRN #1 bottle 04/25/16 01/18/17 Rx Clopidogrel Bisulfate [Clopidogrel] 75 mg PO QAM 01/18/17 01/18/17 History Lisinopril [Prinivil] 2.5 mg PO QAM 01/18/17 01/18/17 History Pantoprazole Tab [Protonix Tab] 40 mg PO QAM 01/18/17 01/18/17 History Carvedilol [Coreg] 3.125 mg PO BID #60 tablet 01/20/17 Rx HYDROcodone/ACETAMIN 5-325 [[place] 1 tablet PO Q4H #30 tablet 01/20/17 Rx 5-325] Isosorbide Mononitrate [Imdur] 30 mg PO DAILY #30 tablet 01/20/17 Rx Tamsulosin [Flomax] 0.4 mg PO BEDTIME #30 capsule 01/20/17 Rx amLODIPine [Norvasc] 5 mg PO DAILY #30 tablet 01/20/17 Rx Review of System - Review of System 12 point system: reviewed and no additional remarkable complaints except as stated - Review of System Constitutional: Present: other (Low blood sugar and hungry). Absent: chills, diaphoresis, fever Eyes: Absent: vision change Head/Ears/Nose/Throat: Absent: earache Respiratory: Absent: cough, respiratory distress, wheezing Cardiovascular: Absent: chest pain Gastrointestinal: Absent: abdominal pain, nausea, vomiting Genitourinary male: Absent: dysuria Musculoskeletal: Absent: arm pain, back pain, leg pain, neck pain Skin: Absent: rash, lesions Neurological: Absent: headache, weakness, paresthesias, confusion Medical,Surgical,& Family Hx - Medical History Cardio: History of: CAD, Hypertension, [place] No history of: Cardiac Dysrhythmia Neurology: History of: Migraine No history of: Brain Aneurysm, Cerebrovascular Accident, Seizures, Vertigo HEENT: History of: HEENT Problems Endocrine: History of: Diabetes Mellitus (NIDDM) Respiratory: History of: COPD, Pneumonia, Lung Cancer (Right lung mass) Comment Only: Respiratory Problems (HAD FLU VACCINE AND PNUEMONIA VACCINE) Genitourinary: History of: Prostate Problems Gastrointestinal: History of: Gastrointestinal Cancer (colon cancer-1989) Other: History of: 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) - Surgical History Cardiac Surgeries: Sugical HX of: Cardiac Catheterization (HEART BYPASS) Neurologic Surgeries: Patient denies: Brain Aneurysm Abdominal Surgeries: Surgical HX of: Abdominal Surgery (: Resection secondary to carcinoma) - Family History Family History: Reports;: Family Diabetes, Family Hypertension - Social History Smoking Status: Current every day smoker Frequency of Alcohol Use: None Type of Drug Use: None Exam Vital Signs: Vital Signs Temperature 97.1 F L 02/06/17 07:48 Pulse Rate 68 02/06/17 09:39 Respiratory Rate 18 02/06/17 09:39 Blood Pressure 152/63 02/06/17 09:39 O2 Sat by Pulse Oximetry 96 02/06/17 09:39 - General General appearance: alert - Head Head exam: Present: atraumatic. Absent: normocephalic, normal inspection, other (Temporal wasting) - Eye Eye exam: Present: normal appearance, PERRL, EOMI - ENT ENT exam: Present: normal exam, normal oropharynx, mucous membranes moist, TM's normal bilaterally - Neck Neck exam: Present: normal inspection, full ROM, trachea midline. Absent: tenderness - Chest Chest inspection: Present: normal inspection, symmetric chest wall rise. Absent : tenderness - Respiratory Respiratory exam: Present: rhonchi (Bilat rhonchi). Absent: normal lung sounds bilaterally, respiratory distress - Cardiovascular Cardiovascular exam: Present: regular rate, normal rhythm, normal heart sounds - Abdominal Exam Abdominal exam: Present: soft, normal bowel sounds - Extremities Exam Extremities exam: Present: normal inspection, full ROM - Back Exam Back exam: Present: normal inspection, full ROM - Neurological Exam Neurological exam: Present: alert, reflexes normal - Psychiatric Psychiatric exam: Present: normal affect, normal mood - Skin Skin exam: Present: warm, dry, intact, normal color. Absent: pallor Course - Consultations Consultation #1: Hospitalist will admit patient Time: 10:38 Results - Labs CBC & BMP: 02/06/17 08:54 02/06/17 08:54 Lab Results: I have reviewed the patients labs Labs: Laboratory Tests 02/06/17 07:59 POC Glucose 63 L Laboratory Tests 02/06/17 08:54 WBC 6.9 RBC 4.03 Hgb 11.0 L Hct 32.8 L MCV 81.4 L MCH 27 MCHC 33.5 RDW 17.5 H Plt Count 261 MPV 10.4 Neut % (Auto) 87.8 H Lymph % (Auto) 6.7 L Wayne % (Auto) 5.1 Eos % (Auto) 0.0 Baso % (Auto) 0.1 Neut # (Auto) 6.1 Lymph # (Auto) 0.5 L Wayne # (Auto) 0.4 Eos # (Auto) 0.0 Baso # (Auto) 0.0 Immature Gran % 0.3 Nucleated RBC % 0.0 Immature Gran # 0.02 Nucleated RBCs # 0.00 Immature Plt Fraction 0.0 Disposition Clinical Impression: Generalized weakness, Hypoglycemia Case discussed with: patient, patient's family Disposition: Still a Patient Condition: Stable Time of Disposition: 10:39
[2017-02-06 09:02] LABS: Basophils % 0.1 % (0.0-0.8); Hematocrit 32.8 VOL% (42.0-52.0); Immature Granulocytes % 0.3 %; Immature Granulocytes Absolute 0.02 #; Lymphocytes # 0.5 10*3/uL (1.4-4.0); Lymphocytes % 6.7 % (21.2-54.2); Mean Corpuscular HGB Conc 33.5 GM/DL (32-36); Mean Corpuscular Hemoglobin 27 PG (27-34); Mean Corpuscular Volume 81.4 FL (87-102); Mean Platelet Volume 10.4 FL (9.6-12.0); Monocytes # 0.4 10*3/uL (0.11-0.8); Monocytes % 5.1 % (1.7-12.7); Neutrophils # 6.1 10*3/uL (1.4-7.4); Neutrophils % 87.8 % (38.7-73.9); Platelet Count 261 T/CUMM (130-400); Red Blood Count 4.03 MC/CUMM (3.8-5.5); Red Cell Distribution Width 17.5 % (9.3-17.3); White Blood Count 6.9 T/CUMM (4-12)
[2017-02-06 09:44] LABS: Band Neutrophils 11 % (0-10); Eosinophils 2 % (0-10); Lymphocytes 6 % (20-55); Segmented Neutrophils 70 % (50-85); Total Cells Counted 100
[2017-02-06 09:45] LABS: Alanine Aminotransferase 15 U/L (16-61); Albumin 3.2 G/DL (3.4-5.0); Alkaline Phosphatase 66 U/L (45-117); Anisocytosis 1+; Aspartate Amino Transferase 21 U/L (0-37); Bilirubin,Total < 0.39 MG/DL (0.2-1.0); Blood Urea Nitrogen 20 MG/DL (7-18); Glucose 132 MG/DL (74-106); Magnesium 1.7 MG/DL (1.8-2.4); Poikilocytosis 2+; Sodium 136 MMOL/L (136-145); Total Protein 7.8 G/DL (6.4-8.3)
[2017-02-06] MEDS ORDERED: MAGNESIUM SULF RIDER 2 GM in PREMIX 1 EACH IV STA (09:55)
[2017-02-06] MEDS ORDERED: MAGNESIUM SULF RIDER 50 ML IV ONE (10:12)
--- NOTE | 2017-02-06 11:41 | Hospitalist History & Physical ---
Assessment and Plan - Time spent with patient Time spent with patient: Greater than 30 minutes Time spent discussing smoking cessation with patient: more than 10 minutes (1) Hypoglycemia Status: Acute Assessment and plan: Likely secondary to medication. Admit patient for observation. D5 normal saline. Accu-Cheks. Diabetic consistent diet. Serial EKGs. Repeat labs in a.m. Current Visit: No (2) Lung cancer Status: Acute Assessment and plan: History of lung mass. Patient has been seen by oncology and has elected to forego treatment/chemotherapy. Current Visit: No Qualifiers: Laterality: right Lung location: middle lobe of lung Qualified Code(s): C34.2 - Malignant neoplasm of middle lobe, bronchus or lung (3) ALEJANDRO (acute kidney injury) Status: Resolved Assessment and plan: Likely secondary to dehydration. Continue IV fluids. Current Visit: No (4) Hx of CABG Status: Chronic Current Visit: No (5) Generalized weakness Status: Acute Current Visit: Yes (6) Diabetes Status: Chronic Assessment and plan: Hemoglobin A1c. Accu-Cheks. Hold insulin for now. Current Visit: No Qualifiers: Diabetes mellitus type: type 2 (7) Smoker Status: Chronic Current Visit: No (8) Hypertension Status: Chronic Assessment and plan: Continue to monitor BP. Continue home medications. Current Visit: No Qualifiers: Hypertension type: essential hypertension Qualified Code(s): I10 - Essential (primary) hypertension History of Present Illness Chief complaint: Hypoglycemia History of present illness: Mr. Taveras is a 86 year old -[place] male with a past medical history significant for [place], CAD, hypertension, diabetes mellitus, and lung carcinoma who presents to the ED today with complaints of low blood sugar. The patient was just seen on last night in the ER with similar complaints and discharged. He returns today with his sister, who is now his primary caregiver, at bedside. This is reports that the patient experienced several episodes of hypoglycemia and near syncope on yesterday. She also states that he complained of chest pain. When questioning the patient regarding the chest pain, the patient states that the pain was a "tightening feeling" that "catched him" with shortness of breath. Patient denies any substernal, radiating, reproducible chest pain. Patient does have a lung mass which is likely the cause of this chest pain. On admission to the ED today, the patient's blood sugar was noted to be 18. He was given D50 and breakfast with resultant glucose up to 132. However his blood sugar has been trending downward since treatment. At last check, the blood sugar was 84. Patient denies headache, nausea or vomiting, diaphoresis or pallor. Patient's systolic BP is slightly elevated at 150. No significant neurologic manifestations are noted. Of note, the patient does have hospice and home health nurses who assist him 5 days a week. He is living with his sister who has assumed the role of primary caregiver. The sister notes that she has been concerned about the patient's blood sugar but reports that he has been "doing so good". However, he now lives with his sister and his glucometer as well as other diabetic supplies are at his home. I will consult case management to reeducate the patient and his sister on home health and hospice options as well as general palliative care. This case has been discussed both Dr. June, ER physician, and Dr. Ledbetter, admitting physician, and the patient will be admitted to the hospital medicine service for further evaluation and treatment. Patient is listed as a full code. Home medications were reviewed and reconciled. Home Medications Medication Instructions Recorded Confirmed Type Cyanocobalamin Inj [Vitamin B12 1,000 mcg IM Q30D 08/31/15 02/06/17 History Inj] Ezetimibe [Zetia] 10 mg PO QAM 08/31/15 02/06/17 History Metformin HCl [Glucophage] 1,000 mg PO BID W/MEALS 08/31/15 02/06/17 History Simvastatin 20 mg PO BEDTIME 08/31/15 02/06/17 History Aspirin [Ecotrin] 81 mg PO QAM 04/21/16 02/06/17 History Nitroglycerin Sl Tab [Nitrostat] 0.4 mg SL Q5M PRN #1 bottle 04/25/16 02/06/17 Rx Clopidogrel Bisulfate [Clopidogrel] 75 mg PO QAM 01/18/17 02/06/17 History Lisinopril [Prinivil] 2.5 mg PO QAM 01/18/17 02/06/17 History Pantoprazole Tab [Protonix Tab] 40 mg PO QAM 01/18/17 02/06/17 History Carvedilol [Coreg] 3.125 mg PO BID #60 tablet 01/20/17 02/06/17 Rx HYDROcodone/ACETAMIN 5-325 [[place] 1 tablet PO Q4H #30 tablet 01/20/17 02/06/17 Rx 5-325] Isosorbide Mononitrate [Imdur] 30 mg PO DAILY #30 tablet 01/20/17 02/06/17 Rx Tamsulosin [Flomax] 0.4 mg PO BEDTIME #30 capsule 01/20/17 02/06/17 Rx amLODIPine [Norvasc] 5 mg PO DAILY #30 tablet 01/20/17 02/06/17 Rx Metoprolol Tartrate 25 mg PO QID 02/06/17 02/06/17 History Allergies Allergy/AdvReac Type Severity Reaction Status Date / Time No Known Allergies Allergy Verified 01/18/17 17:25 Medical,Surgical,& Family Hx - Medical History Cardio: History of: CAD, Hypertension, [place] No history of: Cardiac Dysrhythmia Neurology: History of: Migraine No history of: Brain Aneurysm, Cerebrovascular Accident, Seizures, Vertigo HEENT: History of: HEENT Problems Endocrine: History of: Diabetes Mellitus (NIDDM) Respiratory: History of: COPD, Pneumonia, Lung Cancer (Right lung mass) Comment Only: Respiratory Problems (HAD FLU VACCINE AND PNUEMONIA VACCINE) Genitourinary: History of: Prostate Problems Gastrointestinal: History of: Gastrointestinal Cancer (colon cancer-1989) Other: History of: 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) - Surgical History Cardiac Surgeries: Sugical HX of: Cardiac Catheterization (HEART BYPASS) Neurologic Surgeries: Patient denies: Brain Aneurysm Abdominal Surgeries: Surgical HX of: Abdominal Surgery (: Resection secondary to carcinoma) - Family History Family History: Reports;: Family Diabetes, Family Heart Disease, Family Hypertension - Social History Smoking Status: Current every day smoker Frequency of Alcohol Use: None Type of Drug Use: None Marital Status: Single Lives With:: Sibling Functional capacity: independent ambulation - Constitutional Constitutional: Present: fatigue, weight loss - EENT Eyes: Absent: blurry vision, loss of vision Ears: Absent: decreased hearing Nose, mouth and throat: Absent: headache(s) - Cardiovascular Cardiovascular: Absent: chest pain at rest, chest pain with activity - Respiratory Respiratory: Present: dyspnea. Absent: cough, pain on inspiration - Gastrointestinal Gastrointestinal: Absent: abdominal pain, constipation, diarrhea, nausea, vomiting - Genitourinary Genitourinary: Absent: dysuria, hematuria - Musculoskeletal Musculoskeletal: Present: arthralgias - Neurological Neurological: Present: confusion. Absent: numbness - Psychiatric Psychiatric: Present: depression. Absent: anxiety - Endocrine Endocrine: Present: cold intolerance. Absent: heat intolerance - Hematologic/Lymphatic Hematologic/Lymphatic: Absent: easy bleeding, easy bruising Exam - Constitutional Vitals: Period Temp Pulse Resp BP Sys/Nolen Pulse Ox Last 24 Hr 97.1 F-97.1 F 67-84 16-18 142-181/57-92 94-100 Exam: General appearance: normal weight, no acute distress - Head Head exam: Present: normocephalic, atraumatic - Eye Eye exam: Present: EOMI. Absent: conjunctival injection, nystagmus Pupils: Present: MARIO ALBERTO, normal accommodation - ENT ENT exam: Present: normal exam, normal external ear exam - Neck Neck exam: Present: normal inspection. Absent: lymphadenopathy, tenderness, thyromegaly - Respiratory Respiratory exam: Present: clear to auscultation bilaterally. Absent: rales, rhonchi, wheezes - Cardiovascular Cardiovascular exam: Present: regular rate and rhythm. Absent: carotid bruit, gallop, rubs - GI/Abdominal GI/Abdominal exam: Present: normal bowel sounds. Absent: ascites, distended, mass - Extremities Exam Extremities exam: Present: normal inspection, normal capillary refill. Absent: edema - Back Exam Back exam: Absent: CVA tenderness (L), CVA tenderness (R) - Neurological Exam Neurological exam: Present: alert, oriented X3, CN II-XII intact, reflexes normal - Psychiatric Psychiatric exam: Present: normal affect, normal mood - Skin Skin exam: Present: normal color, warm, dry Results - Labs CBC & BMP: 02/06/17 08:54 02/06/17 08:54 Lab Results: I have reviewed the past 24 hour labs
[2017-02-06 12:24] LABS: Apearance,Urine Slightly Hazy (Clear); Bacteria,Urine Many /HPF (Few); Bilirubin,Urine Negative (Negative); Blood, Urine Moderate mg/dL (Negative); Glucose,Urine (UA) 50 mg/dL (Negative); Ketones,Urine Negative (Negative); Mucus,Urine Occasional /LPF (Occasional); Nitrite,Urine Positive (Negative); Protein,Urine Negative; RBC,Urine 3 /HPF (0-4); Squamous Epithelial Cell,Urine Occasional /HPF (0-10); Urine Color Yellow (Yellow); Urine Specific Gravity 1.011 (1.001-1.035); Urine Urobilinogen < 2.0 EU/DL (0.2-1.0); WBC,Urine 84 /HPF (0-6)
[2017-02-06] MEDS ORDERED: LACTULOSE 20 GM/30 ML UDCUP PO PRN (12:48)
[2017-02-06] MEDS ORDERED: GLUCAGON 1 MG VIAL IM PRN (12:48)
[2017-02-06] MEDS ORDERED: ENOXAPARIN 40 MG/0.4 ML SYRINGE SUBCUT SCH (12:48)
[2017-02-06] MEDS ORDERED: ACETAMINOPHEN 325 MG TABLET PO PRN (12:48)
[2017-02-06] MEDS ORDERED: ONDANSETRON 4 MG/2 ML VIAL IV PRN (12:48)
[2017-02-06] MEDS ORDERED: DEXTROSE 50% 25 GM/50 ML VIAL IV PRN (12:48)
[2017-02-06] MEDS ORDERED: DEXTROSE 5% NACL 0.9% 1,000 ML IV SCH (12:48)
--- NOTE | 2017-02-06 13:00 | Order Completion Report ---
See report scanned to EMR
--- NOTE | 2017-02-06 15:04 | Order Completion Report ---
See report scanned to EMR
[2017-02-06] MEDS ORDERED: DEXTROSE 10% 1,000 ML IV SCH (16:30)
[2017-02-06] MEDS: DEXTROSE 10% 500 ML IV SCH (16:52)
--- NOTE | 2017-02-06 18:13 | Order Completion Report ---
See report scanned to EMR
[2017-02-06] MEDS: CARVEDILOL 3.125 MG TABLET PO SCH (20:45)
[2017-02-06] MEDS: TAMSULOSIN 0.4 MG CAPSULE PO SCH (20:46)
[2017-02-06] MEDS: SIMVASTATIN 20 MG TABLET PO SCH (20:46)
[2017-02-07] MEDS ORDERED: DEXTROSE 10% 1,000 ML IV SCH (02:16)
[2017-02-07 04:50] LABS: Bacteria,Urine Many /HPF (Few); Mucus,Urine Occasional /LPF (Occasional); RBC,Urine 4515 /HPF (0-4); WBC,Urine 2863 /HPF (0-6)
[2017-02-07 04:51] LABS: Apearance,Urine Turbid (Clear); Bilirubin,Urine Negative (Negative); Blood, Urine Large mg/dL (Negative); Glucose,Urine (UA) Negative (Negative); Ketones,Urine Negative (Negative); Nitrite,Urine Negative (Negative); Protein,Urine >500 MG/DL; Urine Color Brown (Yellow)
[2017-02-07 04:52] LABS: Urine Urobilinogen 0.2 EU/DL (0.2-1.0)
[2017-02-07 05:39] LABS: Calcium 8.4 MG/DL (8.5-10.1); Osmolality,Calculated 276.7 MOS/KG (273-304); Potassium 4.9 MMOL/L (3.5-5.1)
[2017-02-07] MEDS: DEXTROSE 10% 500 ML IV SCH (07:55)
[2017-02-07] MEDS: CLOPIDOGREL 75 MG TABLET PO SCH (08:56)
[2017-02-07] MEDS: CARVEDILOL 3.125 MG TABLET PO SCH (08:56)
[2017-02-07] MEDS: PANTOPRAZOLE 40 MG TABLET PO SCH (08:57)
[2017-02-07] MEDS: LISINOPRIL 2.5 MG TABLET PO SCH (08:57)
[2017-02-07] MEDS: amLODIPine 5 MG TABLET PO SCH (08:57)
[2017-02-07] MEDS: ASPIRIN EC 81 MG TABLET PO SCH (08:57)
[2017-02-07] MEDS: ISOSORBIDE MONONITRATE 30 MG TABLET PO SCH (08:57)
[2017-02-07] MEDS: DEXTROSE 5% NACL 0.9% 1,000 ML IV SCH (10:46)
[2017-02-07] MEDS ORDERED: TUBERCULIN SKIN TEST 0.1 ML SYRINGE INTRADERM ONE (10:48)
--- NOTE | 2017-02-07 10:50 | Case Mgmt Physician Query Form ---
TB Signs and Symptoms Screening ([place]) INSTRUCTIONS: To be completed annually on residents/staff with a significant Tuberculin Skin Test (TST) upon admission/hire or a prior significant TST. To be completed on all staff at hire. Please respond to each listed symptom with an (X) in either the "YES" or "NO" box. Do you currently have any of the following symptoms: YES NO ( ) ( x) A cough If yes, is it: ( ) Productive ( ) Non- productive ( ) ( x) Hemoptysis (spitting up blood) ( ) (x ) Chest pains ( x) ( ) Weight Loss ( ) ( x) Fever ( ) ( x) Night Sweats (x ) ( ) Weakness ( ) (x ) Loss of Appetite ( ) ( x) Difficulty Breathing If you answered YES" to any of the above questions, how long have symptoms been present? Comments: NANCY
[2017-02-07] MEDS: CARVEDILOL 25 MG TABLET PO SCH ×2 (12:46→20:53)
--- NOTE | 2017-02-07 13:11 | Hospitalist Progress Note ---
Assessment and Plan (1) Hypoglycemia Status: Acute Assessment and plan: Patient had profound hypoglycemia. Patient's blood pressure is elevated which does not suggest adrenal insufficiency. He was on metformin thousand milligrams p.o. twice daily which does not usually cause profound hypoglycemia. I had the pharmacist analyze all the pills and he is pill bottles and in his pill organizer. Apparently patient had been on glyburide and it was mistakenly put in his lisinopril bottle and was taking glyburide and did not realize it. We have ordered a C-peptide. But I have canceled the other tests. Blood sugars are better today on D10 and I have switched him to D5. Current Visit: Yes (2) UTI (urinary tract infection) Status: Acute Assessment and plan: Patient complained of blood in his urine. We have DC'd the Lovenox and placed on SCDs. He has a severe urinary tract infection and I have started Rocephin. The hematuria is most likely due to the severity of the UTI. I will draw blood cultures as I am concerned due to his weakened state that he they may turn positive. Current Visit: Yes (3) Hematuria Status: Acute Assessment and plan: Most likely due to infection. Current Visit: Yes (4) Pulmonary hypertension Status: Chronic Assessment and plan: Patient has severe pulmonary hypertension due to severe end-stage COPD from smoking so many years. His PAP pressure is 69. Current Visit: No (5) COPD (chronic obstructive pulmonary disease) Status: Chronic Assessment and plan: Chronic and stable will treat with duo nebs Current Visit: No (6) Essential hypertension Status: Chronic Assessment and plan: Not well controlled started Coreg. 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 Will ask PT and OT to evaluate him and see if the daughter is more comfortable with him going to rehab. Current Visit: No (8) Altered mental status Status: Acute Assessment and plan: Resolved with correction of sugar Current Visit: No (9) Generalized weakness Status: Acute Assessment and plan: PT and OT evaluation and case management will make referral for rehab Current Visit: Yes (10) Chronic systolic (congestive) heart failure Status: Acute Assessment and plan: Recent requiring fluids due to hypoglycemia. Echocardiogram showed an EF of 40 % with severe tricuspid regurg and mitral valve insufficiency. Monitor for volume overload. Current Visit: Yes Hospitalist: Subjective Interval history: glyburide 2.5 mg tab were found in the lisinopril bottle of patient. So they thought he was taking lisinopril but it was glyburide which explains the difficulty getting his hypoglycemia to resolve Exam - Constitutional Vitals: Period Temp Pulse Resp BP Sys/Nolen Pulse Ox Last 24 Hr 97.0 F-98.7 F 79-99 20-20 145-176/64-76 93-117 Exam: Heart Rate-[RRR] Lungs-[CTAB but diminished] GI-[+bs soft, NT] Ext-[no edema] Neuro [Motor 4/5], [alert and oriented times 2] psych [normal mood and affect] General [no acute distress] Results - Labs CBC & BMP: 02/06/17 08:54 02/07/17 03:43 Lab Results: I have reviewed the past 24 hour labs Labs: Patient growing 2 types of gram-negative rods in his urine.
[2017-02-07] MEDS: ALBUTEROL/IPRATROPIUM 3 ML NEB RESP TX SCH (19:52)
[2017-02-07] MEDS: TAMSULOSIN 0.4 MG CAPSULE PO SCH (20:53)
[2017-02-07] MEDS: SIMVASTATIN 20 MG TABLET PO SCH (20:53)
[2017-02-08] MEDS: ALBUTEROL/IPRATROPIUM 3 ML NEB RESP TX SCH ×4 (00:27→20:23)
[2017-02-08] MEDS: DEXTROSE 5% NACL 0.9% 1,000 ML IV SCH ×2 (04:58→13:52)
[2017-02-08] MEDS: amLODIPine 5 MG TABLET PO SCH (08:42)
[2017-02-08] MEDS: LISINOPRIL 2.5 MG TABLET PO SCH (08:42)
[2017-02-08] MEDS: CLOPIDOGREL 75 MG TABLET PO SCH (08:42)
[2017-02-08] MEDS: CARVEDILOL 25 MG TABLET PO SCH ×2 (08:42→20:13)
[2017-02-08] MEDS: ISOSORBIDE MONONITRATE 30 MG TABLET PO SCH (08:42)
[2017-02-08] MEDS: PANTOPRAZOLE 40 MG TABLET PO SCH (08:42)
[2017-02-08] MEDS: ASPIRIN EC 81 MG TABLET PO SCH (08:53)
--- NOTE | 2017-02-08 11:17 | XRay Report ---
History short of breath Comparison 01/18/2017 The heart is enlarged. The lobular fullness the right hilum again seen There are mildly increasing bilateral interstitial opacities. Chronic elevation left diaphragm and chronic pleural changes on the left unchanged. An ovoid 2.5 x 4 cm density in the right middle lower chest is unchanged. The a lobulated 1.5 cm calcified pleural density in the lateral right upper chest unchanged Impression: Increasing bilateral interstitial infiltrates versus edema superimposed on the prior lobulated 2.5 x 4.5 cm mass in the right base. Continued evidence of right hilar adenopathy PROCEDURE INTERPRETED AT [facility] DEPARTMENT OF RADIOLOGY Final Report Signed by: Dr. Shira Stahl
--- NOTE | 2017-02-08 15:41 | Hospitalist Progress Note ---
Assessment and Plan (1) Hypoglycemia Status: Acute Assessment and plan: resolved Current Visit: Yes (2) UTI (urinary tract infection) Status: Acute Assessment and plan: Growing E. coli sensitive to Rocephin continue Rocephin Current Visit: Yes (3) Hematuria Status: Acute Assessment and plan: Most likely due to infection. Current Visit: Yes (4) Pulmonary hypertension Status: Chronic Assessment and plan: Patient has severe pulmonary hypertension due to severe end-stage COPD from smoking so many years. His PAP pressure is 69. 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 Rehab. Current Visit: No (8) Altered mental status Status: Acute Assessment and plan: Resolved with correction of sugar Current Visit: No (9) Generalized weakness Status: Acute Assessment and plan: Rehab Current Visit: Yes (10) Chronic systolic (congestive) heart failure Status: Acute Assessment and plan: Restart Lasix 20 mg IV every 12 Current Visit: Yes Hospitalist: Subjective Interval history: Blood sugars too high today. We will Hep-Lock IV fluids. We have changed his blood sugar checks q. before meals and nightly. Exam - Constitutional Vitals: Period Temp Pulse Resp BP Sys/Nolen Pulse Ox Last 24 Hr 96.5 F-98.6 F 69-97 16-20 113-144/55-76 91-100 Exam: Heart Rate-[RRR] Lungs-[CTAB GI-[+bs soft, NT] Ext-[no edema] Neuro [Motor 4/5], [alert and oriented times 2] psych [normal mood and affect] General [no acute distress] Results - Labs CBC & BMP: 02/06/17 08:54 02/07/17 03:43 Lab Results: I have reviewed the past 24 hour labs - Diagnostic Findings Procedure: Chest x-ray: report reviewed by me (Bilateral infiltrates versus edema)
[2017-02-08] MEDS: FUROSEMIDE 20 MG/2 ML VIAL IV SCH (17:19)
[2017-02-08] MEDS: TAMSULOSIN 0.4 MG CAPSULE PO SCH (20:13)
[2017-02-08] MEDS: SIMVASTATIN 20 MG TABLET PO SCH (20:13)
[2017-02-09] MEDS: ALBUTEROL/IPRATROPIUM 3 ML NEB RESP TX SCH ×3 (00:14→13:11)
[2017-02-09 05:59] LABS: Basophils % 0.4 % (0.0-0.8); Eosinophils # 0.1 10*3/uL (0.0-0.87); Eosinophils % 2.3 % (0.00-10.9); Hematocrit 26.7 VOL% (42.0-52.0); Hemoglobin 9.2 GM/DL (14.0-18.0); Immature Granulocytes % 0.5 %; Immature Granulocytes Absolute 0.03 #; Lymphocytes # 0.8 10*3/uL (1.4-4.0); Mean Corpuscular HGB Conc 34.5 GM/DL (32-36); Mean Corpuscular Hemoglobin 27 PG (27-34); Mean Corpuscular Volume 79.2 FL (87-102); Mean Platelet Volume 10.8 FL (9.6-12.0); Monocytes # 0.7 10*3/uL (0.11-0.8); Monocytes % 12.3 % (1.7-12.7); Neutrophils # 3.9 10*3/uL (1.4-7.4); Neutrophils % 70.5 % (38.7-73.9); Platelet Count 237 T/CUMM (130-400); Red Blood Count 3.37 MC/CUMM (3.8-5.5); Red Cell Distribution Width 16.9 % (9.3-17.3); White Blood Count 5.6 T/CUMM (4-12)
[2017-02-09 07:00] LABS: Calcium 8.5 MG/DL (8.5-10.1); Osmolality,Calculated 276.8 MOS/KG (273-304); Potassium 4.5 MMOL/L (3.5-5.1)
[2017-02-09 07:44] LABS: Eosinophils 5 % (0-10); Lymphocytes 19 % (20-55); Myelocytes 1 %; Segmented Neutrophils 71 % (50-85); Total Cells Counted 100
[2017-02-09 07:45] LABS: Hypochromasia 2+; Microcytosis 1+; Platelet Estimate Adequate
[2017-02-09] MEDS: FUROSEMIDE 20 MG/2 ML VIAL IV SCH (08:41)
[2017-02-09] MEDS: ASPIRIN EC 81 MG TABLET PO SCH (08:42)
[2017-02-09] MEDS: ISOSORBIDE MONONITRATE 30 MG TABLET PO SCH (08:42)
[2017-02-09] MEDS: CARVEDILOL 25 MG TABLET PO SCH (08:42)
[2017-02-09] MEDS: CLOPIDOGREL 75 MG TABLET PO SCH (08:42)
[2017-02-09] MEDS: LISINOPRIL 2.5 MG TABLET PO SCH (08:42)
[2017-02-09] MEDS: PANTOPRAZOLE 40 MG TABLET PO SCH (08:42)
[2017-02-09] MEDS: amLODIPine 5 MG TABLET PO SCH (08:42)
--- NOTE | 2017-02-09 12:00 | Discharge Summary ---
Hospital Course - Hospital Course Hospital Course: Mr. Taveras is a 86 year old -[place] male with a past medical history significant for CO, CAD, hypertension, diabetes mellitus, who is currently on hospice for end stage lung carcinoma. EMS called by sister, who is now his primary caregiver, reports persistent hypoglycemia. On admission to the ED today, the patient's blood sugar was noted to be 18. He was given D50 and breakfast with glucose up to 132. However his blood sugar has been trending downward since treatment. At last check, the blood sugar was 84. Patient's medication bottles listed metformin but metformin does not cause this profound hypoglycemia. Patient was placed on D10 normal saline just to keep his sugars up. His medicine bottles and medicine organizer were both sent down to the pharmacy to review the pills in them. Apparently patient had glyburide pills in his lisinopril possible. How they got there is unknown. The glyburide was causing his severe profound hypoglycemia. Patient was taken off all diabetic medicines while in the hospital. He was switched over to D5 after his sugar stabilized and is been off D5 her all day. His blood sugars are still mildly elevated but I do not want him to return to medications. With his muscle wasting in poor appetite his blood sugars probably will not be hard to control with diet alone. PT and OT have been consulted. Patient has done well with rehab but is extremely weak. Patient will be transferred on Sunday to [facility] under the care of hospice. [facility] will care for him in the home on Sunday and Sunday. Patient will be discharged home today. Patient did develop some volume overload due to his chronic systolic congestive heart failure and severe pulmonary hypertension. He was gently diuresed with Lasix and is on Coreg. An SUSAN inhibitor or ARB will be given for avoided due to his hyperkalemia. He did have a UTI growing out E. coli sensitive to Rocephin. I will treat him for a total of 10 days of Ceftin. His blood cultures 2 are negative no growth. Discharge home today on hospice. 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 (8) Altered mental status Status: Acute (9) Generalized weakness Status: Acute (10) Chronic systolic (congestive) heart failure Status: Acute Discharge Plan - Discharge Data Disposition: Hospice - Home Condition at Discharge: Stable Discharge Diet: diabetic diet Activity: resume usual activities as tolerated, as per physical therapy Hygiene: no restrictions Weight Bearing at Discharge: full weight bearing - Discharge Medications New Carvedilol [Coreg] 25 mg PO BID #60 tablet Cefuroxime Tab [Ceftin] 500 mg PO BID #20 tablet Furosemide Tab [Lasix Tab] 20 mg PO BID DIURETIC #60 tablet HYDROcodone/ACETAMIN 7.5-325 [Hermon 7.5-325] 1 tablet PO Q4H PRN #30 tablet PRN Reason: Pain Moderate (4-7) Continue Cyanocobalamin Inj [Vitamin B12 Inj] 1,000 mcg IM Q30D Simvastatin 20 mg PO BEDTIME Clopidogrel Bisulfate [Clopidogrel] 75 mg PO QAM Pantoprazole Tab [Protonix Tab] 40 mg PO QAM amLODIPine [Norvasc] 5 mg PO DAILY #30 tablet Isosorbide Mononitrate [Imdur] 30 mg PO DAILY #30 tablet Tamsulosin [Flomax] 0.4 mg PO BEDTIME #30 capsule Aspirin [Ecotrin] 81 mg PO QAM Lisinopril [Prinivil] 2.5 mg PO QAM Docusate/Senna 50-8.6 [Senokot S] 1 tablet PO BID LORazepam TAB [Ativan Tab] 0.5 mg PO BEDTIME #30 tablet Discontinued Ezetimibe [Zetia] 10 mg PO QAM Metformin HCl [Glucophage] 1,000 mg PO BID W/MEALS Nitroglycerin Sl Tab [Nitrostat] 0.4 mg SL Q5M PRN #1 bottle PRN Reason: Chest Pain Carvedilol [Coreg] 3.125 mg PO BID #60 tablet Metoprolol Tartrate Tab [Lopressor Tab] 50 mg PO BID Sulfameth/Trimeth 800-160 Tab [Bactrim DS Tab] 1 tablet PO [id number] HYDROcodone/ACETAMIN 5-325 [Hermon 5-325] 1 tablet PO Q4H #30 tablet - Follow Up or Referral - Forms/Instructions Exam - Constitutional Vitals: Period Temp Pulse Resp BP Sys/Nolen Pulse Ox Last 24 Hr 96.7 F-98.7 F 74-94 16-20 123-158/59-66 91-100 General appearance: no acute distress, under weight - Respiratory Respiratory exam: Present: clear to auscultation bilaterally, decreased breath sounds. Absent: wheezes - Cardiovascular Cardiovascular exam: Present: regular rate and rhythm - GI/Abdominal GI/Abdominal exam: Present: normal bowel sounds, soft - Extremities Exam Extremities exam: Present: normal inspection, normal capillary refill Discharge Results Procedures and tests throughout hospitalization: Pending Orders 02/07/17 Urine Culture Routine 02/07/17 14:08 Blood Culture Routine 02/10/17 04:00 BMP [Basic Metabolic Panel] IN AM Comp Blood Count Auto Diff IN AM 02/11/17 04:00 BMP [Basic Metabolic Panel] IN AM Comp Blood Count Auto Diff IN AM Labs on day of discharge: Labs from last 24 hours 02/09/17 02/09/17 02/09/17 11:40 08:22 04:22 WBC RBC Hgb Hct MCV MCH MCHC RDW Plt Count MPV Neut % (Auto) Lymph % (Auto) Amador % (Auto) Eos % (Auto) Baso % (Auto) Neut # (Auto) Lymph # (Auto) Amador # (Auto) Eos # (Auto) Baso # (Auto) Total Counted Immature Gran % Nucleated RBC % Immature Gran # Segmented Neutrophils Lymphocytes Monocytes Eosinophils Basophils Myelocytes Nucleated RBCs # Platelet Estimate Immature Plt Fraction Hypochromasia Microcytosis Sodium 137 Potassium 4.5 Chloride 102 Carbon Dioxide 28 Anion Gap 11.5 BUN 15 Creatinine 1.10 GFR Calculation 72 BUN/Creatinine Ratio 13.00 Glucose 144 H POC Glucose 249 H 205 H C-Peptide Calculated Osmolality 276.8 Calcium 8.5 02/09/17 02/08/17 02/08/17 04:22 18:36 16:04 WBC 5.6 RBC 3.37 L Hgb 9.2 L Hct 26.7 L MCV 79.2 L MCH 27 MCHC 34.5 RDW 16.9 Plt Count 237 MPV 10.8 Neut % (Auto) 70.5 Lymph % (Auto) 14.0 L Amador % (Auto) 12.3 Eos % (Auto) 2.3 Baso % (Auto) 0.4 Neut # (Auto) 3.9 Lymph # (Auto) 0.8 L Amador # (Auto) 0.7 Eos # (Auto) 0.1 Baso # (Auto) 0.0 Total Counted 100 Immature Gran % 0.5 Nucleated RBC % 0.0 Immature Gran # 0.03 Segmented Neutrophils 71 Lymphocytes 19 L Monocytes 3 Eosinophils 5 Basophils 1.0 H Myelocytes 1 Nucleated RBCs # 0.00 Platelet Estimate Adequate Immature Plt Fraction 0.0 Hypochromasia 2+ Microcytosis 1+ Sodium Potassium Chloride Carbon Dioxide Anion Gap BUN Creatinine GFR Calculation BUN/Creatinine Ratio Glucose POC Glucose 335 H 247 H C-Peptide Calculated Osmolality Calcium 02/08/17 02/08/17 02/07/17 13:23 13:21 13:07 WBC RBC Hgb Hct MCV MCH MCHC RDW Plt Count MPV Neut % (Auto) Lymph % (Auto) Amador % (Auto) Eos % (Auto) Baso % (Auto) Neut # (Auto) Lymph # (Auto) Amador # (Auto) Eos # (Auto) Baso # (Auto) Total Counted Immature Gran % Nucleated RBC % Immature Gran # Segmented Neutrophils Lymphocytes Monocytes Eosinophils Basophils Myelocytes Nucleated RBCs # Platelet Estimate Immature Plt Fraction Hypochromasia Microcytosis Sodium Potassium Chloride Carbon Dioxide Anion Gap BUN Creatinine GFR Calculation BUN/Creatinine Ratio Glucose POC Glucose 335 H 297 H C-Peptide 4.7 H Calculated Osmolality Calcium Preliminary micro results at discharge 02/07/17 14:08 Blood Culture - Preliminary Blood No growth at 1 day 02/07/17 14:08 Blood Culture - Preliminary Blood No growth at 1 day 02/07/17 Unknown Urine Culture - Preliminary Urine,Voided Gram Negative Rods DS: Provider Date of admission: 02/07/17 10:05 Primary care physician: Meseret Rush NP Attending physician on admission: Minnie Ledbetter MD Consults: 02/06/17 15:51 Consult to Dietitian [CONS] Routine Reason for Dietitian: Diet Instruction 02/07/17 10:06 Consult to Case Mgmt/Social Srvs [CONS] Routine Reason for Case Mgmt/Social Srvs: Rehab Consult to Occupational Therapy [CONS] Routine Reason for Occupational Therapy: Evaluate and Treat Consult to Physical Therapy [CONS] Routine Reason for Physical Therapy: Evaluate and Treat Discharging clinician: Minnie Ledbetter MD
[2017-02-09 13:00] VITALS: BP 115/57
== END 2017-02-09 15:20 | disposition hospice, home (50) | DRG 638 ==
LOC: EDUNIT# → EDBD → N.ED 07:43 → INTOOBSV 10:39 → N.EDINP 10:39 → N.4E 12:23
PROVIDERS: ADMIT Internal Medicine; ATTEND Internal Medicine